=== PATIENT | female | born 1990 | race Caucasian/White ===

== ENCOUNTER 2017-12-12 12:22 | Emergency (ER) | payer OTHER ==
[2017-12-12] MEDS ORDERED: SODIUM CHLORIDE 0.9% 1,000 ML IV ONE (12:28)
[2017-12-12] MEDS ORDERED: METOCLOPRAMIDE 5 MG/ML 2 ML VIAL IVP STA (12:38)
--- NOTE | 2017-12-12 12:38 | ED ---
General Adult HPI - General Chief complaint: Nausea/Vomiting/Diarrhea Stated complaint: vomiting Time Seen by Provider: 12/12/17 12:25 Source: patient, RN notes reviewed Mode of arrival: EMS Limitations: no limitations - History of Present Illness Initial comments: This is a 27 her old female who presents emergency department 7 weeks . Patient comes in stating she has been vomiting nonstop for the last 3 days. Patient states she has not of OVERCASTER. Patient states she also is having occasional chest pain that last 2-3 seconds and then seemed to subside. Patient states along with the pain she feels short of breath during that period of time and then that resolved as well currently she is having no chest pain and no shortness of breath. Patient denies any abdominal pain. Patient denies any vaginal discharge or bleeding. Patient denies any recent fever chills or cough. - Related Data Previous Rx's Medication Instructions Recorded Metoclopramide [Reglan] 10 mg PO ACHS #10 tab 12/12/17 Allergies Allergy/AdvReac Type Severity Reaction Status Date / Time No Known Allergies Allergy Verified 12/12/17 12:43 Review of Systems ROS Statement: Those systems with pertinent positive or pertinent negative responses have been documented in the HPI. ROS Other: All systems not noted in ROS Statement are negative. Past Medical History Past Medical History: No Reported History Additional Past Medical History / Comment(s): migraine headaches History of Any Multi-Drug Resistant Organisms: None Reported Past Surgical History: Section Additional Past Surgical History / Comment(s): C-sections x 2, most recent in August 2015, Dr. Lazo Past Anesthesia/Blood Transfusion Reactions: No Reported Reaction Past Psychological History: Anxiety, Depression Smoking Status: Former smoker Past Alcohol Use History: None Reported Past Drug Use History: None Reported - Past Family History Mother Family Medical History: No Reported History Father History Unknown: Yes Family Medical History: No Reported History Additional Family Medical History / Comment(s): Pt has never known her father other than he lives in [place]. General Exam - General Exam Comments Initial Comments: GENERAL: Patient is well-developed and well-nourished. Patient is nontoxic and well- hydrated and is in no acute distress. ENT: Neck is soft and supple. No significant lymphadenopathy is noted. Oropharynx is clear. Moist mucous membranes. EYES: The sclera were anicteric and conjunctiva were pink and moist. Extraocular movements were intact and pupils were equal round and reactive to light. Eyelids were unremarkable. PULMONARY: Unlabored respirations. Good breath sounds bilaterally. No audible rales rhonchi or wheezing was noted. CARDIOVASCULAR: There is a regular rate and rhythm without any murmurs gallops or rubs. ABDOMEN: Soft and nontender with normal bowel sounds. SKIN: Skin is clear with no lesions or rashes and otherwise unremarkable. NEUROLOGIC: Patient is alert and oriented x3. Cranial nerves II through XII are grossly intact. Motor and sensory are also intact. Normal speech, volume and content. Symmetrical smile. MUSCULOSKELETAL: Normal extremities with adequate strength and full range of motion. No lower extremity swelling or edema. No calf tenderness. LYMPHATICS: No significant lymphadenopathy is noted PSYCHIATRIC: Normal psychiatric evaluation. Limitations: no limitations Course Vital Signs 12/12/17 12:25 Temperature 98.0 F Pulse Rate 75 Respiratory 18 Rate Blood Pressure 110/80 O2 Sat by Pulse 100 Oximetry Medical Decision Making - Medical Decision Making I went back into the room the patient was sleeping and had to be awoken by myself. When I awoke her she stated she was having no symptoms at this time. She was no longer nauseated. - Lab Data Result diagrams: 12/12/17 13:32 12/12/17 13:32 Lab Results 12/12/17 12/12/17 12/12/17 Range/Units 13:32 13:32 13:38 WBC 8.1 (3.8-10.6) k/uL RBC 3.84 (3.80-5.40) m/uL Hgb 11.9 (11.4-16.0) gm/dL Hct 35.2 (34.0-46.0) % MCV 91.5 (80.0-100.0) fL MCH 30.9 (25.0-35.0) pg MCHC 33.7 (31.0-37.0) g/dL RDW 13.2 (11.5-15.5) % Plt Count 284 (150-450) k/uL Neutrophils % 70 % Lymphocytes % 20 % Monocytes % 7 % Eosinophils % 1 % Basophils % 0 % Neutrophils # 5.7 (1.3-7.7) k/uL Lymphocytes # 1.6 (1.0-4.8) k/uL Monocytes # 0.6 (0-1.0) k/uL Eosinophils # 0.1 (0-0.7) k/uL Basophils # 0.0 (0-0.2) k/uL D-Dimer 0.48 (<0.60) mg/L FEU Sodium 138 (137-145) mmol/L Potassium 3.6 (3.5-5.1) mmol/L Chloride 108 H (98-107) mmol/L Carbon Dioxide 19 L (22-30) mmol/L Anion Gap 11 mmol/L BUN 10 (7-17) mg/dL Creatinine 0.49 L (0.52-1.04) mg/dL Est GFR (CKD-EPI)AfAm >90 (>60 ml/min/1.73 sqM) Est GFR (CKD-EPI)NonAf >90 (>60 ml/min/1.73 sqM) Glucose 75 (74-99) mg/dL Calcium 9.1 (8.4-10.2) mg/dL Total Bilirubin 0.6 (0.2-1.3) mg/dL AST 18 (14-36) U/L ALT 26 (9-52) U/L Alkaline Phosphatase 82 (38-126) U/L Total Protein 6.5 (6.3-8.2) g/dL Albumin 3.7 (3.5-5.0) g/dL Disposition Clinical Impression: Hyperemesis gravidarum Disposition: HOME SELF-CARE Instructions: Hyperemesis Gravidarum (ED) Prescriptions: Metoclopramide [Reglan] 10 mg PO ACHS #10 tab Referrals: None,Stated [Primary Care Provider] - 1-2 days Time of Disposition: 14:47
[2017-12-12 13:55] LABS: Basophils % (A) 0 %; Eosinophils # (A) 0.1 k/uL (0-0.7); Eosinophils % (A) 1 %; HCT 35.2 % (34.0-46.0); HGB 11.9 gm/dL (11.4-16.0); Lymphocytes # (A) 1.6 k/uL (1.0-4.8); Lymphocytes % (A) 20 %; MCH 30.9 pg (25.0-35.0); MCHC 33.7 g/dL (31.0-37.0); MCV 91.5 fL (80.0-100.0); Mean Platelet Volume 8.1; Monocytes # (A) 0.6 k/uL (0-1.0); Monocytes % (A) 7 %; Neutrophils # (A) 5.7 k/uL (1.3-7.7); Neutrophils % (A) 70 %; Platelet Count 284 k/uL (150-450); RBC 3.84 m/uL (3.80-5.40); RDW 13.2 % (11.5-15.5); WBC 8.1 k/uL (3.8-10.6)
[2017-12-12 14:10] LABS: ALT 26 U/L (9-52); AST 18 U/L (14-36); Albumin 3.7 g/dL (3.5-5.0); Alkaline Phosphatase 82 U/L (38-126); Anion Gap 11 mmol/L; Blood Urea Nitrogen 10 mg/dL (7-17); Calcium 9.1 mg/dL (8.4-10.2); Carbon Dioxide 19 mmol/L (22-30); Chloride 108 mmol/L (98-107); Glucose 75 mg/dL (74-99); Potassium 3.6 mmol/L (3.5-5.1); Sodium 138 mmol/L (137-145); Total Bilirubin 0.6 mg/dL (0.2-1.3); Total Protein 6.5 g/dL (6.3-8.2)
[2017-12-12 14:57] VITALS: BP 113/74; PULSE 76; RESP 12; TEMP 97.9
[2017-12-12] MEDS ORDERED: ACETAMINOPHEN TAB 325 MG TAB PO STA (14:57)
== END 2017-12-12 15:10 | disposition home or self-care (01) ==
LOC: EC 12:22
DX: O21.0 Mild hyperemesis gravidarum (principal); Z87.891 Personal history of nicotine dependence; Z98.890 Other specified postprocedural states; Z3A.01 Less than 8 weeks gestation of pregnancy
CPT/HCPCS: 36415; 85379; 80053; 85025; 99284; 96374; 96361; J2765

== ENCOUNTER 2018-01-14 11:47 | Emergency (ER) | payer OTHER ==
[2018-01-14 13:17] VITALS: RESP 18; TEMP 98.1
[2018-01-14] MEDS ORDERED: METOCLOPRAMIDE 5 MG/ML 2 ML VIAL IVP STA (13:51)
[2018-01-14] MEDS ORDERED: diphenhydrAMINE 50 MG/ML 1 ML VIAL IVP STA (13:51)
--- NOTE | 2018-01-14 13:54 | ED ---
Nausea/Vomiting/Diarrhea HPI - General Chief complaint: Nausea/Vomiting/Diarrhea Stated complaint: dizziness, nausea Time Seen by Provider: 01/14/18 13:18 Source: patient Mode of arrival: ambulatory Limitations: no limitations - History of Present Illness Initial comments: Patient presents with nausea and vomiting in . Patient states she is 13 weeks . Patient is . Is a recurrent problem for the patient, has been seen in the ER twice for the same problem this . Patient has yet to see OB physician. Patient had abdominal ultrasound confirming intrauterine during last ER visit. Patient states she was told she has a vaginal yeast infection, however never filled prescription for medication , because she could not get a ride to the pharmacy. Patient states she continues to have small amount of yellow odorous discharge, that is the exact same is she had she when she was diagnosed with yeast infection. Denies any vaginal bleeding. Patient denies urinary symptoms. Denies fevers, chills. Patient states she vomits regularly throughout the day. States she has been able to keep small amounts of water and yogurt down. MD complaint: nausea, vomiting - Related Data Previous Rx's Medication Instructions Recorded Miconazole 2% Vaginal Cream 1 applicator VAGINAL HS 7 Days #1 01/14/18 [Monistat 7] cream.appl Ondansetron Odt [Zofran Odt] 4 mg PO Q8HR PRN #10 tab 01/14/18 Allergies Allergy/AdvReac Type Severity Reaction Status Date / Time No Known Allergies Allergy Verified 01/14/18 13:33 Review of Systems ROS Statement: Those systems with pertinent positive or pertinent negative responses have been documented in the HPI. ROS Other: All systems not noted in ROS Statement are negative. Constitutional: Denies: fever, chills, weakness Eyes: Denies: vision change ENT: Denies: ear pain, throat pain, congestion Respiratory: Denies: cough Cardiovascular: Denies: chest pain Endocrine: Denies: fatigue Gastrointestinal: Reports: nausea, vomiting. Denies: abdominal pain, diarrhea, constipation, hematemesis, melena, hematochezia Genitourinary: Reports: discharge. Denies: urgency, dysuria, frequency, hematuria Musculoskeletal: Denies: back pain Skin: Denies: rash, lesions, change in color Neurological: Denies: headache Past Medical History Past Medical History: No Reported History Additional Past Medical History / Comment(s): migraine headaches History of Any Multi-Drug Resistant Organisms: None Reported Past Surgical History: Section Additional Past Surgical History / Comment(s): C-sections x 2, most recent in August 2015, Dr. Lazo Past Anesthesia/Blood Transfusion Reactions: No Reported Reaction Past Psychological History: Anxiety, Depression Smoking Status: Former smoker Past Alcohol Use History: None Reported Past Drug Use History: Marijuana - Past Family History Mother Family Medical History: No Reported History Father History Unknown: Yes Family Medical History: No Reported History Additional Family Medical History / Comment(s): Pt has never known her father other than he lives in [place]. General Exam - General Exam Comments Initial Comments: Sitting up on side of bed. No acute distress. Conversing normally. Calm, pleasant. well Appearing. Limitations: no limitations General appearance: alert, in no apparent distress Head exam: Present: atraumatic, normocephalic Eye exam: Present: normal appearance, PERRL, EOMI ENT exam: Present: normal exam, normal oropharynx Neck exam: Present: normal inspection, full ROM. Absent: meningismus Respiratory exam: Present: normal lung sounds bilaterally. Absent: respiratory distress, wheezes, rales Cardiovascular Exam: Present: regular rate, normal rhythm GI/Abdominal exam: Present: soft, other (Abdomen soft nontender). Absent: distended, tenderness, guarding, rebound, rigid Extremities exam: Present: other (No gross deformities of the extremities.) Neurological exam: Present: alert, oriented X3 Psychiatric exam: Present: normal affect, normal mood Skin exam: Present: warm, dry, intact, normal color. Absent: rash, cyanosis, diaphoretic, erythema Course Vital Signs 01/14/18 01/14/18 13:13 14:30 Temperature 98.1 F Pulse Rate 85 69 Respiratory 18 18 Rate Blood Pressure 108/70 106/66 O2 Sat by Pulse 99 98 Oximetry Medical Decision Making - Medical Decision Making Discussed pelvic examination given patient's discharge, patient states she had a pelvic exam during her last ER visit and does not want to repeat one today. Patient states discharge has not changed in any way. Discuss risk benefit of nausea medication options in , patient elected to receive Reglan. Lactated Ringer's fluid boluses given. Patient given miconazole vaginal cream in ER, instructed to use daily for 7 days. No significant lab abnormalities, UA negative for infection Patient updated with all results, states symptoms resolved status post medications. Patient states oral Reglan did not work for at home, patient requests Zofran. Risk benefit of Zofran distress, patient states she understands, patient still requests Zofran. Prescription vaginal it's a fungal cream prescribed as well. Patient states she has been approved today for visit with OB, states she can schedule one for one to 2 days for reevaluation. Agrees to return to ER for new or worsening symptoms. - Lab Data Result diagrams: 01/14/18 14:08 01/14/18 14:08 Lab Results 01/14/18 01/14/18 01/14/18 Range/Units 14:08 14:08 14:30 WBC 8.8 (3.8-10.6) k/uL RBC 4.05 (3.80-5.40) m/uL Hgb 12.3 (11.4-16.0) gm/dL Hct 35.9 (34.0-46.0) % MCV 88.5 (80.0-100.0) fL MCH 30.5 (25.0-35.0) pg MCHC 34.4 (31.0-37.0) g/dL RDW 12.6 (11.5-15.5) % Plt Count 312 (150-450) k/uL Neutrophils % 71 % Lymphocytes % 20 % Monocytes % 5 % Eosinophils % 3 % Basophils % 0 % Neutrophils # 6.3 (1.3-7.7) k/uL Lymphocytes # 1.8 (1.0-4.8) k/uL Monocytes # 0.4 (0-1.0) k/uL Eosinophils # 0.2 (0-0.7) k/uL Basophils # 0.0 (0-0.2) k/uL Sodium 138 (137-145) mmol/L Potassium 3.7 (3.5-5.1) mmol/L Chloride 104 (98-107) mmol/L Carbon Dioxide 21 L (22-30) mmol/L Anion Gap 13 mmol/L BUN 6 L (7-17) mg/dL Creatinine 0.50 L (0.52-1.04) mg/dL Est GFR (CKD-EPI)AfAm >90 (>60 ml/min/1.73 sqM) Est GFR (CKD-EPI)NonAf >90 (>60 ml/min/1.73 sqM) Glucose 79 (74-99) mg/dL Calcium 9.6 (8.4-10.2) mg/dL Total Bilirubin 0.3 (0.2-1.3) mg/dL AST 14 (14-36) U/L ALT 16 (9-52) U/L Alkaline Phosphatase 69 (38-126) U/L Total Protein 7.0 (6.3-8.2) g/dL Albumin 3.8 (3.5-5.0) g/dL Lipase 73 (23-300) U/L Urine Color Colorless Urine Appearance Clear (Clear) Urine pH 7.0 (5.0-8.0) Ur Specific [place] 1.006 (1.001-1.035) Urine Protein Negative (Negative) Urine Glucose (UA) Negative (Negative) Urine Ketones Negative (Negative) Urine Blood Negative (Negative) Urine Nitrite Negative (Negative) Urine Bilirubin Negative (Negative) Urine Urobilinogen <2.0 (<2.0) mg/dL Ur Leukocyte Esterase Negative (Negative) Disposition Clinical Impression: Vomiting affecting Disposition: HOME SELF-CARE Condition: Good Additional Instructions: Follow-up with your OB Dr. Lazo in 1-2 days. Return to ER for new or worsening symptoms. Prescriptions: Miconazole 2% Vaginal Cream [Monistat 7] 1 applicator VAGINAL HS 7 Days #1 cream.appl Ondansetron Odt [Zofran Odt] 4 mg PO Q8HR PRN #10 tab PRN Reason: Nausea Is patient prescribed a controlled substance at discharge?: No Referrals: None,Stated [Primary Care Provider] - 1-2 days
[2018-01-14] MEDS ORDERED: LACTATED RINGERS 2,000 ML IV SCH (14:00)
[2018-01-14 14:24] LABS: Basophils % (A) 0 %; Eosinophils # (A) 0.2 k/uL (0-0.7); Eosinophils % (A) 3 %; HCT 35.9 % (34.0-46.0); HGB 12.3 gm/dL (11.4-16.0); Lymphocytes # (A) 1.8 k/uL (1.0-4.8); Lymphocytes % (A) 20 %; MCH 30.5 pg (25.0-35.0); MCHC 34.4 g/dL (31.0-37.0); MCV 88.5 fL (80.0-100.0); Mean Platelet Volume 7.2; Monocytes # (A) 0.4 k/uL (0-1.0); Monocytes % (A) 5 %; Neutrophils # (A) 6.3 k/uL (1.3-7.7); Neutrophils % (A) 71 %; Platelet Count 312 k/uL (150-450); RBC 4.05 m/uL (3.80-5.40); RDW 12.6 % (11.5-15.5); WBC 8.8 k/uL (3.8-10.6)
[2018-01-14 14:30] VITALS: BP 106/66; PULSE 69
[2018-01-14 14:33] LABS: ALT 16 U/L (9-52); AST 14 U/L (14-36); Albumin 3.8 g/dL (3.5-5.0); Alkaline Phosphatase 69 U/L (38-126); Anion Gap 13 mmol/L; Blood Urea Nitrogen 6 mg/dL (7-17); Calcium 9.6 mg/dL (8.4-10.2); Carbon Dioxide 21 mmol/L (22-30); Chloride 104 mmol/L (98-107); Glucose 79 mg/dL (74-99); Lipase 73 U/L (23-300); Potassium 3.7 mmol/L (3.5-5.1); Sodium 138 mmol/L (137-145); Total Bilirubin 0.3 mg/dL (0.2-1.3)
[2018-01-14 14:44] LABS: Appearance,Urine Clear (Clear); Bilirubin,Urine Negative (Negative); Blood,Urine Negative (Negative); Color,Urine Colorless; Glucose,Urine (UA) Negative (Negative); Ketones,Urine Negative (Negative); Leukocyte Esterase,Urine Negative (Negative); Nitrite,Urine Negative (Negative); Protein,Urine Negative (Negative); Specific Gravity,Urine 1.006 (1.001-1.035); Urobilinogen,Urine <2.0 mg/dL (<2.0)
[2018-01-14] MEDS ORDERED: MICONAZOLE 2% VAGINAL CREAM 45 GM TUBE/KIT VAGINAL ONE (15:00)
== END 2018-01-14 15:21 | disposition home or self-care (01) ==
LOC: EC 11:47
DX: O21.9 Vomiting of pregnancy, unspecified (principal); O99.89 Other specified diseases and conditions complicating pregnancy, childbirth and the puerperium; R42 Dizziness and giddiness; Z3A.13 13 weeks gestation of pregnancy; Z87.891 Personal history of nicotine dependence
CPT/HCPCS: 36415; 80053; 83690; 85025; 81003; 87086; 99284; 96374; 96375; 96361; J1200; J2765

== ENCOUNTER 2018-02-28 13:41 | Emergency (ER) | payer OTHER ==
[2018-02-28 13:51] VITALS: BP 102/74; PULSE 92; RESP 18; TEMP 98.2
--- NOTE | 2018-02-28 15:10 | ED ---
Abdominal Pain HPI - General Chief Complaint: Abdominal Pain Stated Complaint: 19 1/2 wks preg/side abdominal pain Time Seen by Provider: 02/28/18 14:54 Source: patient, RN notes reviewed Mode of arrival: ambulatory Limitations: no limitations - History of Present Illness Initial Comments: This a 28-year-old female presents emergency Department chief complaint of left lower quadrant abdominal pain. Patient states that she feels that it's bulging or lumps. Patient states that she is currently 19 weeks and her OB/ PELLETIZER TENDER is Dr. Hernandez. Patient is A0. Patient states this has been present for last 2 weeks talk to her BLEACHING SUPERVISOR about this. Recommended to go to the ER if symptoms worsen. They did not feel this is anything to do with her . She denies any vaginal bleeding or vaginal discharge. Patient states she does have a history of anemia. Patient denies any fever, chills, chest pain or shortness breath. - Related Data Home Medications Medication Instructions Recorded Confirmed diphenhydrAMINE [Benadryl] 25 mg PO DAILY PRN 02/28/18 02/28/18 Previous Rx's Medication Instructions Recorded Cephalexin [Keflex] 500 mg PO Q8HR #15 cap 02/28/18 Allergies Allergy/AdvReac Type Severity Reaction Status Date / Time No Known Allergies Allergy Verified 02/28/18 14:44 Review of Systems ROS Statement: Those systems with pertinent positive or pertinent negative responses have been documented in the HPI. ROS Other: All systems not noted in ROS Statement are negative. Past Medical History Past Medical History: No Reported History Additional Past Medical History / Comment(s): migraine headaches History of Any Multi-Drug Resistant Organisms: None Reported Past Surgical History: Section Additional Past Surgical History / Comment(s): C-sections x 2, most recent in August 2015, Dr. Lazo Past Anesthesia/Blood Transfusion Reactions: No Reported Reaction Past Psychological History: Anxiety, Depression Smoking Status: Former smoker Past Alcohol Use History: None Reported Past Drug Use History: Marijuana - Past Family History Mother Family Medical History: No Reported History Father History Unknown: Yes Family Medical History: No Reported History Additional Family Medical History / Comment(s): Pt has never known her father other than he lives in [place]. General Exam Limitations: no limitations General appearance: alert, in no apparent distress Head exam: Present: atraumatic, normocephalic, normal inspection Respiratory exam: Present: normal lung sounds bilaterally. Absent: respiratory distress, wheezes, rales, rhonchi, stridor Cardiovascular Exam: Present: regular rate, normal rhythm, normal heart sounds. Absent: systolic murmur, diastolic murmur, rubs, gallop, clicks GI/Abdominal exam: Present: soft, tenderness (Tenderness to left upper quadrant) , normal bowel sounds, other (Abdomen size appropriate for gestational age). Absent: distended, guarding, rebound, rigid Back exam: Absent: CVA tenderness (R), CVA tenderness (L) Skin exam: Present: warm, dry, intact, normal color. Absent: rash Course Vital Signs 02/28/18 13:47 Temperature 98.2 F Pulse Rate 92 Respiratory 18 Rate Blood Pressure 102/74 O2 Sat by Pulse 98 Oximetry Medical Decision Making - Medical Decision Making 28-year-old female presents to emergency from for abdominal pain. Patient ultrasound which did not show any acute abnormality of her left upper quadrant. She does have some underlying GERD symptoms. She'll take [id number] Tums. Patient may have abdominal wall strain or slight hernia. Patient had heart tones which is unremarkable. Patient does have urinary tract infection. - Lab Data Result diagrams: 02/28/18 15:28 02/28/18 15:28 Lab Results 02/28/18 02/28/18 02/28/18 Range/Units 15:14 15:28 15:28 WBC 9.7 (3.8-10.6) k/uL RBC 3.60 L (3.80-5.40) m/uL Hgb 11.2 L (11.4-16.0) gm/dL Hct 32.9 L (34.0-46.0) % MCV 91.3 (80.0-100.0) fL MCH 31.0 (25.0-35.0) pg MCHC 34.0 (31.0-37.0) g/dL RDW 13.4 (11.5-15.5) % Plt Count 295 (150-450) k/uL Neutrophils % 71 % Lymphocytes % 20 % Monocytes % 5 % Eosinophils % 3 % Basophils % 0 % Neutrophils # 6.9 (1.3-7.7) k/uL Lymphocytes # 2.0 (1.0-4.8) k/uL Monocytes # 0.5 (0-1.0) k/uL Eosinophils # 0.3 (0-0.7) k/uL Basophils # 0.0 (0-0.2) k/uL PT (9.0-12.0) sec INR (<1.2) APTT (22.0-30.0) sec Sodium 136 L (137-145) mmol/L Potassium 3.8 (3.5-5.1) mmol/L Chloride 103 (98-107) mmol/L Carbon Dioxide 22 (22-30) mmol/L Anion Gap 11 mmol/L BUN 6 L (7-17) mg/dL Creatinine 0.52 (0.52-1.04) mg/dL Est GFR (CKD-EPI)AfAm >90 (>60 ml/min/1.73 sqM) Est GFR (CKD-EPI)NonAf >90 (>60 ml/min/1.73 sqM) Glucose 93 (74-99) mg/dL Calcium 9.1 (8.4-10.2) mg/dL Total Bilirubin 0.3 (0.2-1.3) mg/dL AST 13 L (14-36) U/L ALT 20 (9-52) U/L Alkaline Phosphatase 70 (38-126) U/L Total Protein 6.2 L (6.3-8.2) g/dL Albumin 3.6 (3.5-5.0) g/dL Urine Color Light Yellow Urine Appearance Cloudy H (Clear) Urine pH 6.5 (5.0-8.0) Ur Specific [place] 1.005 (1.001-1.035) Urine Protein Negative (Negative) Urine Glucose (UA) Negative (Negative) Urine Ketones Negative (Negative) Urine Blood Negative (Negative) Urine Nitrite Negative (Negative) Urine Bilirubin Negative (Negative) Urine Urobilinogen <2.0 (<2.0) mg/dL Ur Leukocyte Esterase Large H (Negative) Urine RBC 4 (0-5) /hpf Urine WBC 16 H (0-5) /hpf Ur Squamous Epith Cells 7 H (0-4) /hpf Urine Mucus Rare H (None) /hpf 02/28/18 Range/Units 15:28 WBC (3.8-10.6) k/uL RBC (3.80-5.40) m/uL Hgb (11.4-16.0) gm/dL Hct (34.0-46.0) % MCV (80.0-100.0) fL MCH (25.0-35.0) pg MCHC (31.0-37.0) g/dL RDW (11.5-15.5) % Plt Count (150-450) k/uL Neutrophils % % Lymphocytes % % Monocytes % % Eosinophils % % Basophils % % Neutrophils # (1.3-7.7) k/uL Lymphocytes # (1.0-4.8) k/uL Monocytes # (0-1.0) k/uL Eosinophils # (0-0.7) k/uL Basophils # (0-0.2) k/uL PT 10.3 (9.0-12.0) sec INR 1.1 (<1.2) APTT 22.7 (22.0-30.0) sec Sodium (137-145) mmol/L Potassium (3.5-5.1) mmol/L Chloride (98-107) mmol/L Carbon Dioxide (22-30) mmol/L Anion Gap mmol/L BUN (7-17) mg/dL Creatinine (0.52-1.04) mg/dL Est GFR (CKD-EPI)AfAm (>60 ml/min/1.73 sqM) Est GFR (CKD-EPI)NonAf (>60 ml/min/1.73 sqM) Glucose (74-99) mg/dL Calcium (8.4-10.2) mg/dL Total Bilirubin (0.2-1.3) mg/dL AST (14-36) U/L ALT (9-52) U/L Alkaline Phosphatase (38-126) U/L Total Protein (6.3-8.2) g/dL Albumin (3.5-5.0) g/dL Urine Color Urine Appearance (Clear) Urine pH (5.0-8.0) Ur Specific [place] (1.001-1.035) Urine Protein (Negative) Urine Glucose (UA) (Negative) Urine Ketones (Negative) Urine Blood (Negative) Urine Nitrite (Negative) Urine Bilirubin (Negative) Urine Urobilinogen (<2.0) mg/dL Ur Leukocyte Esterase (Negative) Urine RBC (0-5) /hpf Urine WBC (0-5) /hpf Ur Squamous Epith Cells (0-4) /hpf Urine Mucus (None) /hpf Disposition Clinical Impression: , Abdominal wall pain, GERD (gastroesophageal reflux disease), UTI ( urinary tract infection) Disposition: HOME SELF-CARE Condition: Stable Instructions: Urinary Tract Infection in (ED) Additional Instructions: Please return to the Emergency Department if symptoms worsen or any other concerns. Prescriptions: Cephalexin [Keflex] 500 mg PO Q8HR #15 cap Is patient prescribed a controlled substance at d/c from ED?: No Referrals: None,Stated [Primary Care Provider] - 1-2 days
[2018-02-28 15:35] LABS: Appearance,Urine Cloudy (Clear); Bilirubin,Urine Negative (Negative); Blood,Urine Negative (Negative); Color,Urine Light Yellow; Glucose,Urine (UA) Negative (Negative); Ketones,Urine Negative (Negative); Leukocyte Esterase,Urine Large (Negative); Mucus,Urine Rare /hpf; Nitrite,Urine Negative (Negative); PH, Urine 6.5 (5.0-8.0); Protein,Urine Negative (Negative); RBC,Urine 4 /hpf (0-5); Specific Gravity,Urine 1.005 (1.001-1.035); Squamous Epithelial Cell,Urine 7 /hpf (0-4); Urobilinogen,Urine <2.0 mg/dL (<2.0); WBC,Urine 16 /hpf (0-5)
[2018-02-28 15:36] LABS: Basophils % (A) 0 %; Eosinophils # (A) 0.3 k/uL (0-0.7); Eosinophils % (A) 3 %; HCT 32.9 % (34.0-46.0); HGB 11.2 gm/dL (11.4-16.0); Lymphocytes % (A) 20 %; MCV 91.3 fL (80.0-100.0); Monocytes # (A) 0.5 k/uL (0-1.0); Monocytes % (A) 5 %; Neutrophils # (A) 6.9 k/uL (1.3-7.7); Neutrophils % (A) 71 %; Platelet Count 295 k/uL (150-450); RDW 13.4 % (11.5-15.5); WBC 9.7 k/uL (3.8-10.6)
[2018-02-28 15:50] LABS: ALT 20 U/L (9-52); AST 13 U/L (14-36); Albumin 3.6 g/dL (3.5-5.0); Alkaline Phosphatase 70 U/L (38-126); Anion Gap 11 mmol/L; Blood Urea Nitrogen 6 mg/dL (7-17); Calcium 9.1 mg/dL (8.4-10.2); Carbon Dioxide 22 mmol/L (22-30); Chloride 103 mmol/L (98-107); Glucose 93 mg/dL (74-99); Potassium 3.8 mmol/L (3.5-5.1); Sodium 136 mmol/L (137-145); Total Bilirubin 0.3 mg/dL (0.2-1.3); Total Protein 6.2 g/dL (6.3-8.2)
[2018-02-28 15:52] LABS: INR 1.1 (<1.2); Partial Thromboplastin Time 22.7 sec (22.0-30.0); Prothrombin Time 10.3 sec (9.0-12.0)
--- NOTE | 2018-02-28 16:05 | US ---
EXAMINATION TYPE: US abdomen limited DATE OF EXAM: 02/28/2018 COMPARISON: NONE CLINICAL HISTORY: LUQ Pain. EXAM MEASUREMENTS: Spleen: wnl Left Kidney: wnl 1. Spleen: 10.7 cm 2. Left Kidney: 9.9 x 4.5 x 4.1 cm No abnormality visualized. IMPRESSION: No left-sided hydronephrosis or nephrolithiasis. No splenomegaly. No sonographic abnormal ity.
== END 2018-02-28 16:44 | disposition home or self-care (01) ==
LOC: EC 13:41
DX: O99.612 Diseases of the digestive system complicating pregnancy, second trimester (principal); K21.9 Gastro-esophageal reflux disease without esophagitis; O23.42 Unspecified infection of urinary tract in pregnancy, second trimester; Z87.891 Personal history of nicotine dependence; Z98.890 Other specified postprocedural states; Z3A.19 19 weeks gestation of pregnancy
CPT/HCPCS: 36415; 76705; 80053; 81001; 85025; 85610; 85730; 99284

== ENCOUNTER → 2018-04-08 | Outpatient (CLI) | payer OTHER ==
[2018-04-08 11:29] LABS: HCT 30.6 % (34.0-46.0); HGB 10.1 gm/dL (11.4-16.0); MCH 31.2 pg (25.0-35.0); MCHC 32.9 g/dL (31.0-37.0); Mean Platelet Volume 6.6; Platelet Count 310 k/uL (150-450); RBC 3.22 m/uL (3.80-5.40); RDW 13.1 % (11.5-15.5); WBC 9.9 k/uL (3.8-10.6)
[2018-04-08 19:42] LABS: HIV AB P24 Non-Reactive (Non-Reactive); HIV P24 AG Non-Reactive (Non-Reactive)
[2018-04-09 06:49] LABS: Toxoplasma Antibody (IgG) <3.0 IU/mL (<7.2); Toxoplasma Antibody (IgM) <3.0 AU/mL (<8.0)
== END | disposition home or self-care (01) ==
LOC: LABWHC1 10:11
PROVIDERS: ATTEND Obstetrics & Gynecology
DX: Z34.82 Encounter for supervision of other normal pregnancy, second trimester (principal); Z3A.00 Weeks of gestation of pregnancy not specified
CPT/HCPCS: 36415; 82565; 82950; 85027; 86762; 86777; 86778; 86780; 86850; 86900; 86901; 87340; 87390

== ENCOUNTER 2018-04-19 12:24 | Outpatient (CLI) | payer OTHER ==
[2018-04-19 13:23] LABS: Appearance,Urine Cloudy (Clear); Bacteria,Urine Rare /hpf; Bilirubin,Urine Negative (Negative); Blood,Urine Negative (Negative); Color,Urine Yellow; Glucose,Urine (UA) Negative (Negative); Ketones,Urine Negative (Negative); Leukocyte Esterase,Urine Large (Negative); Mucus,Urine Rare /hpf; Nitrite,Urine Negative (Negative); PH, Urine 6.5 (5.0-8.0); Protein,Urine Negative (Negative); RBC,Urine <1 /hpf (0-5); Specific Gravity,Urine 1.016 (1.001-1.035); Squamous Epithelial Cell,Urine 4 /hpf (0-4); Urobilinogen,Urine <2.0 mg/dL (<2.0); WBC,Urine 7 /hpf (0-5)
[2018-04-19 14:55] VITALS: BP 119/69; PULSE 110; RESP 16; TEMP 96.4
--- NOTE | 2018-04-24 10:58 | P.MSEPDOC ---
Presenting Problems - Arrival Data Date of Arrival on Unit: 04/19/18 Time of Arrival on Unit: 12:24 Mode of Transport: Ambulatory - Complaint OB-Reason for Admission/Chief Complaint: Rule Out SROM Medical History - Information : 4 Para: 3 Term: 3 : 0 Abortions: Spontaneous or Elective: 0 Number of Living Children: 3 - Gestational Age Gestational Age by HALEY (wks/days): 26 Weeks and 3 Days - History Complications: Prior Review of Systems - Review of Systems Constitutional: No problems Breast: No problems ENT: No problems Cardiovascular: No problems Respiratory: No problems Gastrointestinal: No problems Genitourinary: No problems Musculoskeletal: No problems Neurological: No problems Skin: No problems Vital Signs - Temperature Temperature: 96.4 F Temperature Source: Tympanic - Pulse Bilateral Brachial Pulse Rate: 110 Pulse Assessment Method: Automatic Cuff - Respirations Respiratory Rate: 16 Oxygen Delivery Method: Room Air - Blood Pressure Right Arm Blood Pressure: 119/69 Blood Pressure Mean: 85 Blood Pressure Source: Automatic Cuff Medical Screen Scoring (Pre) - Cervical Exam Dilation: 0 cm = 0 Membranes: Intact - Uterine Contractions Frequency: N/A Duration: N/A Intensity: N/A - Maternal Vital Signs Maternal Temperature: N/A Maternal Blood Pressure: N/A Signs of Preeclampsia: N/A Maternal Respirations: N/A - Pain Assessment Pain Location and Character: Abdomen Pain Scale Used: Numeric (1 - 10) Pain Intensity: 8 Pain Management Goal: 4 Pain Description: *Acute Pain Radiation Location: na Pain Frequency: Intermittent Pain Duration: 3 Pain Duration Units: Minutes Pain Behavior: Vocalization Pain Aggravating Factors: None Non-Pharmacological Interventions: Position/Reposition - Assessment Baseline FHR: 135 Heart Rate - NICHD Category: Category I (Normal) = 0 NST: Reactive Position: N/A Station: N/A - Total Score Total Score (Pre): 0 - Level of Risk Level of Risk: N/A Physician Notification (Pre) - Physician Notified Physician Notified Date: 04/19/18 Physician Notified Time: 13:30 Physician/Practitioner Notifed:: Dr. Chacon Spoke With: Dr. Chacon New Order Received: Yes - Notification Comment Comment: d/c home Disposition - Disposition OB Disposition: Discharge to home Discharge Date: 04/19/18 Discharge Time: 13:40 I agree with the RN Medical Screening Exam: Yes Risk & Benefit of care provided described in d/c instruction: Yes Diagnosis: FALSE LABOR BEFORE 37 COMPLETED WEEKS OF GEST, THIRD TRI
== END 2018-04-19 13:40 | disposition home or self-care (01) ==
LOC: FBPOP 12:24
PROVIDERS: ATTEND Obstetrics & Gynecology
DX: O47.03 False labor before 37 completed weeks of gestation, third trimester (principal); Z3A.26 26 weeks gestation of pregnancy
CPT/HCPCS: 81001; 87086; G0463; 99213

== ENCOUNTER 2018-07-16 05:55 | Inpatient (IN) | payer OTHER ==
[2018-07-16] MEDS ORDERED: CITRIC ACID-SODIUM CITRATE 15 ML CUP PO ONE (06:06)
[2018-07-16] MEDS ORDERED: LACTATED RINGERS 1,000 ML IV ONE (06:06)
[2018-07-16] MEDS ORDERED: ceFAZolin IN SWFI 2 GM/20 ML SYRINGE IVP ONE (06:06)
[2018-07-16 06:16] VITALS: BMI 28.2
[2018-07-16 07:35] LABS: Basophils % (A) 0 %; Eosinophils # (A) 0.2 k/uL (0-0.7); Eosinophils % (A) 1 %; HCT 28.9 % (34.0-46.0); HGB 9.7 gm/dL (11.4-16.0); Lymphocytes # (A) 2.2 k/uL (1.0-4.8); Lymphocytes % (A) 20 %; MCH 28.2 pg (25.0-35.0); MCHC 33.5 g/dL (31.0-37.0); MCV 84.1 fL (80.0-100.0); Mean Platelet Volume 7.5; Monocytes # (A) 0.6 k/uL (0-1.0); Monocytes % (A) 5 %; Neutrophils # (A) 7.8 k/uL (1.3-7.7); Neutrophils % (A) 71 %; Platelet Count 302 k/uL (150-450); RBC 3.44 m/uL (3.80-5.40); RDW 14.4 % (11.5-15.5); WBC 11.1 k/uL (3.8-10.6)
[2018-07-16] MEDS: LACTATED RINGERS 1,000 ML IV SCH ×2 (07:49→21:45)
[2018-07-16] MEDS ORDERED: fentaNYL (PF) 50 MCG/ML 2 ML AMP ONE (08:08)
[2018-07-16] MEDS ORDERED: METOCLOPRAMIDE 5 MG/ML 2 ML VIAL ONE (08:08)
[2018-07-16] MEDS ORDERED: OXYTOCIN 10 UNIT/ML 1 ML VIAL ONE (08:08)
[2018-07-16] MEDS ORDERED: ePHEDrine SULFATE/0.9% NACL/PF 50 MG/5 ML SYRINGE IV ONE (08:08)
[2018-07-16] MEDS ORDERED: KETOROLAC 30 MG/ML 1 ML VIAL ONE (08:08)
[2018-07-16] MEDS ORDERED: MORPHINE SULFATE (PF) 0.3 MG/0.3 ML SYR ONE (08:08)
[2018-07-16] MEDS ORDERED: ONDANSETRON 4 MG/2 ML VIAL ONE (08:08)
[2018-07-16] MEDS ORDERED: diphenhydrAMINE 50 MG/ML 1 ML VIAL ONE (08:08)
[2018-07-16] MEDS ORDERED: ACETAMINOPHEN TAB 325 MG TAB PO PRN (08:52)
[2018-07-16] MEDS ORDERED: ZOLPIDEM 5 MG TAB PO PRN (08:52)
[2018-07-16] MEDS ORDERED: diphenhydrAMINE 50 MG/ML 1 ML VIAL IVP PRN ×2 (08:52)
[2018-07-16] MEDS ORDERED: HYDROcodone/APAP 7.5-325MG 1 EACH TAB PO PRN (08:52)
[2018-07-16] MEDS ORDERED: diphenhydrAMINE 25 MG CAP PO PRN (08:52)
[2018-07-16] MEDS ORDERED: METOCLOPRAMIDE 5 MG/ML 2 ML VIAL IVP PRN (08:52)
[2018-07-16] MEDS ORDERED: ONDANSETRON 4 MG/2 ML VIAL IVP PRN (08:52)
[2018-07-16] MEDS ORDERED: NALOXONE 0.4 MG/ML 1 ML VIAL IV PRN (08:52)
[2018-07-16] MEDS ORDERED: diphenhydrAMINE 50 MG CAP PO PRN (08:52)
--- NOTE | 2018-07-16 08:55 | P.HPOB ---
History of Present Illness H&P Date: 07/16/18 Chief Complaint: Intrauterine at term: Prior section: Family planning Isela is a 28-year-old G for P3 with 3 prior sections who is scheduled for same with tubal ligation. Her course was generally uncomplicated although she did have some sacral pain and lightheadedness in the early third trimester. Otherwise she was doing very well. Pertinent labs included B+ blood type, rubella was immune, hepatitis B surface antigen was negative as was HIV. Her RPR was also nonreactive. heart tones were category 1 tracing this morning prior to going for her section. All questions were answered for her prior to proceeding to the section and risks/benefits/ alternatives were reviewed. Past Medical History Past Medical History: No Reported History Additional Past Medical History / Comment(s): migraine headaches, Seasonal headaches History of Any Multi-Drug Resistant Organisms: None Reported Past Surgical History: Section Additional Past Surgical History / Comment(s): C-sections x 3 Past Anesthesia/Blood Transfusion Reactions: No Reported Reaction Past Psychological History: Anxiety, Depression Additional Psychological History / Comment(s): Pt states she has "really bad anxiety" and is normally on medication for this but is currently taken herself off due to . She resides family and her 2 children, a boy age 3yrs and a girl age 1 yr[address] not [address] Family takes her to [employer]. Smoking Status: Former smoker Past Alcohol Use History: None Reported Additional Past Alcohol Use History / Comment(s): Pt states she smoked from age [age] yrs. She then quit and restarted smoking earlier this year and quit 2 days ago. - Past Family History Mother Family Medical History: No Reported History Father History Unknown: Yes Family Medical History: No Reported History Additional Family Medical History / Comment(s): Pt has never known her father other than he lives in [place]. Medications and Allergies Home Medications Medication Instructions Recorded Confirmed Type diphenhydrAMINE [Benadryl] 25 mg PO DAILY PRN 02/28/18 07/16/18 History Allergies Allergy/AdvReac Type Severity Reaction Status Date / Time No Known Allergies Allergy Verified 07/16/18 06:05 Exam Osteopathic Statement: *. No significant issues noted on an osteopathic structural exam other than those noted in the History and Physical/Consult. Vital Signs Temp Pulse Resp BP 07/16/18 06:10 97.5 F L 103 H 16 107/68 Intake and Output 07/15/18 07/16/18 07/16/18 22:59 06:59 14:59 Other: Weight 79.379 kg - OBG Physical Exam Breast: both: normal (no masses) Abdomen: bowel sounds normal, no diffuse tenderness, no bruit present, no guarding noted, no hepatomegaly, no splenomegaly, no mass Vulva: both: normal Vagina: normal moisture, no discharge Cervix: no lesion, no discharge Uterus: normal size, normal contour Adnexa: both: normal Anus/Rectum: normal perianal skin, no rectal mass, no hemorrhoids, heme negative Results Result Diagrams: 07/16/18 06:40 Abnormal Lab Results - Last 24 Hours (Table) 07/16/18 Range/Units 06:40 WBC 11.1 H (3.8-10.6) k/uL RBC 3.44 L (3.80-5.40) m/uL Hgb 9.7 L (11.4-16.0) gm/dL Hct 28.9 L (34.0-46.0) % Neutrophils # 7.8 H (1.3-7.7) k/uL
--- NOTE | 2018-07-16 08:59 | P.OP ---
Date of Procedure: 07/16/18 Preoperative Diagnosis: Intrauterine term: Family planning: Prior section Postoperative Diagnosis: Same Procedure(s) Performed: Repeat low-transverse section with bilateral partial salpingectomy Anesthesia: spinal Surgeon: Jonathan Garibay Material Requirements Worker #1: Jesusita Lazo Estimated Blood Loss (ml): 600 Pathology: none sent Condition: stable Disposition: floor Operative Findings: Male scores of 9 and 9 at one and 5 minutes respectively and weight was 8 lbs. 1 oz. Description of Procedure: Patient was taken to the operating suite where a spinal anesthetic was found be adequate. She was prepped and draped in normal sterile fashion and placed in dorsal supine position with leftward tilt. Initially a Pfannenstiel skin incision was made this incision was then carried through to underlying layer of the fascia with the second knife. Fascia was then nicked in the midline and this opening was extended laterally with Cross scissors. Superior and inferior aspect of this incision were then grasped tented up and bluntly and sharply dissected off the rectus muscles. Rectus muscles were then divided the midline and blunt dissection through the peritoneum was made. This opening was then extended superiorly and inferiorly with good visualization of both bowel bladder. Bladder blade was then placed and the bladder flap identified. It was entered sharply with Metzenbaum scissors and this was extended across face uterus with Metzenbaum scissors and then the bladder was bluntly dissected out of the operative field. Knife was then used to incise uterus this opening was then fully developed with hemostat and then bluntly extended. Once this was accomplished despite traction try to elevate the baby's head into the incision on we were unable to get the baby to come all the way into the incisions therefore a vacuum was applied to the baby's head in appropriate position, it was pumped up to the lowest level of green indicating proper millimeters mercury pressure and then using just very gentle traction we're able to bring the baby's head into the incision Rodney in less than 5 seconds. Mouth nares were then bulb suctioned anterior posterior shoulders were delivered with gentle downward upper traction followed by the remainder the baby. Umbilical cord was then clamped cut usual fashion an nursery personnel was present to assume care. Placenta was then delivered intact and Pitocin was added to the IV. Uterus was then exteriorized cleared of clots and debris and closed in 1 layer with 0 Vicryl suture. Bladder flap was then reapproximated with 3-0 Vicryl. Attention was then turned to the fallopian tubes and using hemostat the tube was grasped both the right and left side 3 cm from uterine cornu and a window was created in the mesosalpinx. 2 proximal to distal 2-0 silk sutures were then placed and intervening approximately 2 cm segment was excised. TIPS were then cauterized and uterus following removal blood and debris from the posterior cul-de-sac was reinserted into the abdomen. Peritoneal layer was then closed with 0 Vicryl suture fascial layer was closed with 0 Vicryl suture one layer of 3-0 Vicryl was placed in deep subcuticular tissues to reapproximate skin and close the space, skin was then closed with 3-0 Vicryl subcuticularly.
[2018-07-16] MEDS ORDERED: INFLUENZA VACCINE (6 MOS+) 60 MCG/0.5 ML SYRINGE IM ONE (10:22)
[2018-07-16] MEDS: KETOROLAC 30 MG/ML 1 ML VIAL IVP PRN ×2 (14:39→20:14)
[2018-07-16] MEDS ORDERED: PROMETHAZINE INJ 6.25 MG in SODIUM CHLORIDE 0.9% 50 ML IVPB PRN (18:02)
[2018-07-16] MEDS: SENNOSIDES-DOCUSATE SODIUM 1 EACH TAB PO SCH (21:47)
[2018-07-17] MEDS: LACTATED RINGERS 1,000 ML IV SCH ×2 (00:13→13:48)
[2018-07-17] MEDS: KETOROLAC 30 MG/ML 1 ML VIAL IVP PRN ×2 (02:33→08:52)
[2018-07-17 08:04] LABS: Basophils % (A) 0 %; Eosinophils # (A) 0.1 k/uL (0-0.7); Eosinophils % (A) 1 %; HCT 24.4 % (34.0-46.0); Hypochromasia Slight; Lymphocytes # (A) 1.8 k/uL (1.0-4.8); Lymphocytes % (A) 16 %; MCH 28.2 pg (25.0-35.0); MCHC 33.1 g/dL (31.0-37.0); MCV 85.4 fL (80.0-100.0); Monocytes # (A) 0.6 k/uL (0-1.0); Monocytes % (A) 5 %; Neutrophils # (A) 8.5 k/uL (1.3-7.7); Neutrophils % (A) 76 %; Platelet Count 279 k/uL (150-450); RBC 2.85 m/uL (3.80-5.40); RDW 14.6 % (11.5-15.5); WBC 11.2 k/uL (3.8-10.6)
[2018-07-17 08:07] LABS: HGB 8.1 gm/dL (11.4-16.0)
[2018-07-17] MEDS: SENNOSIDES-DOCUSATE SODIUM 1 EACH TAB PO SCH ×2 (08:53→22:07)
--- NOTE | 2018-07-17 13:08 | P.PN ---
Progress Note - Text Anesthesia POD 1. Patient is status post section under spinal anesthesia with intra-thecal preservative free morphine 300 g. Mild pruritus, excellent post-op analgesia, and no headache or other complication.
[2018-07-17] MEDS: IBUPROFEN 600 MG TAB PO PRN ×2 (15:52→22:07)
[2018-07-17] MEDS ORDERED: Acetaminophen-Codeine 300-30mg TAB PO PRN (16:29)
[2018-07-17] MEDS: Acetaminophen-Codeine 300-30mg TAB PO PRN (18:09)
[2018-07-18] MEDS: Acetaminophen-Codeine 300-30mg TAB PO PRN ×2 (01:12→08:59)
[2018-07-18] MEDS: IBUPROFEN 600 MG TAB PO PRN (03:55)
--- NOTE | 2018-07-18 06:33 | P.PNOBGPC ---
Subjective - Subjective Patient reports: Reports appetite normal, Reports voiding normally, Reports pain well controlled, Reports ambulating normally : doing well Objective - Vital Signs Latest vital signs: Vital Signs Temp Pulse Resp BP Pulse Ox 07/17/18 23:01 98.0 F 76 16 112/70 98 07/17/18 15:57 97.9 F 76 16 106/64 07/17/18 08:55 97.7 F 80 16 101/59 99 Intake and Output 07/17/18 07/17/18 07/18/18 14:59 22:59 06:59 Output Total 700 Balance -700 Output: Urine 700 Other: # Voids 2 2 - Exam Lungs: bilateral: normal Chest: Normal S1, Normal S2 Extremities: Present: normal Abdomen: Present: normal appearance, soft. Absent: distention, tenderness Incision: Present: normal, dry, intact Uterus: Present: normal, firm - Labs Labs: Abnormal Lab Results - Last 24 Hours (Table) 07/17/18 Range/Units 07:25 WBC 11.2 H (3.8-10.6) k/uL RBC 2.85 L (3.80-5.40) m/uL Hgb 8.1 L D (11.4-16.0) gm/dL Hct 24.4 L (34.0-46.0) % Neutrophils # 8.5 H (1.3-7.7) k/uL Assessment and Plan Assessment: Postoperative day #2. Patient is resting without complaints wishes to go home. Vital signs are stable she is afebrile. Hemoglobin yesterday was 8.1 and preoperatively was 9.7 so this is an appropriate drop and consistent with chronic anemia. Patient states that she has been taking some iron at home as instructed by Dr. Garibay. Patient is tolerating regular diet, ambulating, urinating without difficulty. Her incision is intact and dry eye feel she is stable for discharge home today follow with Dr. Garibay in 1 week. (1) delivery delivered Current Visit: No Status: Acute Code(s): O82 - ENCOUNTER FOR DELIVERY WITHOUT INDICATION SNOMED Code(s): 205783414
--- NOTE | 2018-07-18 06:42 | P.DS ---
Providers Date of admission: 07/16/18 05:55 Expected date of discharge: 07/18/18 Attending physician: Jonathan Garibay Primary care physician: Stated None - Discharge Diagnosis(es) (1) delivery delivered Current Visit: No Status: Acute Hospital Course: Please see dictated H&P and operative note per Dr. Garibay and this patient's admission. Brief summary this is a 28-year-old 4 para 3 female 39 and one sevenths weeks gestation admitted to labor and delivery for elective repeat section and tubal ligation. Patient undergoes above-named surgery. Postoperatively the patient does well and on postoperative 2 was felt be stable for discharge home. Note the patient does have some chronic anemia we'll continue take iron therapy home. Follow-up with Dr. Garibay in approximately 1 week. Procedures: Repeat low transverse section and bilateral partial salpingectomy. Patient Condition at Discharge: Good Plan - Discharge Summary New Discharge Prescriptions: New Acetaminophen-Codeine 300-30mg [Tylenol w/codeine #3] 2 each PO Q4HR PRN #36 tab PRN Reason: Pain Ibuprofen [Motrin] 600 mg PO Q6HR PRN #40 tab PRN Reason: Mild Pain Or Fever >= 100.5 No Action diphenhydrAMINE [Benadryl] 25 mg PO DAILY PRN PRN Reason: Allergy Symptoms Discharge Medication List diphenhydrAMINE [Benadryl] 25 mg PO DAILY PRN 02/28/18 [History] Acetaminophen-Codeine 300-30mg [Tylenol w/codeine #3] 2 each PO Q4HR PRN #36 tab 07/18/18 [Rx] Ibuprofen [Motrin] 600 mg PO Q6HR PRN #40 tab 07/18/18 [Rx] Follow up Appointment(s)/Referral(s): Jonathan Garibay DO [Doctor of Osteopathic Medicine] - 07/25/18 2:00 pm (Patient also has a appointment with Dr. Garibay in August 28 at 1:45 PM.) Patient Instructions/Handouts: (DC) Activity/Diet/Wound Care/Special Instructions: No heavy lifting or strenuous activity for 6 weeks. No intercourse or anything per vagina for 6 weeks. Please call if any fever, chills, excessive vaginal bleeding, and/or abdominal pain. Discharge Disposition: HOME SELF-CARE
[2018-07-18 09:48] VITALS: PULSE 68; RESP 18
[2018-07-18 09:49] VITALS: BP 106/68; TEMP 97
== END 2018-07-18 11:35 | disposition home or self-care (01) | DRG 785 ==
LOC: 4FBP 05:55
PROVIDERS: ADMIT Obstetrics & Gynecology; ATTEND Obstetrics & Gynecology
PROC: 0UB70ZZ Excision of Bilateral Fallopian Tubes, Open Approach (ICD-10-PCS; 2018-07-16)
PROC: 3E0234Z Introduction of Serum, Toxoid and Vaccine into Muscle, Percutaneous Approach (ICD-10-PCS; 2018-07-16)
PROC: 10D00Z1 Extraction of Products of Conception, Low, Open Approach (ICD-10-PCS; principal; 2018-07-16 08:00)
DX: O34.211 Maternal care for low transverse scar from previous cesarean delivery (principal); D64.9 Anemia, unspecified; O99.02 Anemia complicating childbirth; M53.3 Sacrococcygeal disorders, not elsewhere classified; O99.344 Other mental disorders complicating childbirth; F32.9 Major depressive disorder, single episode, unspecified; F41.9 Anxiety disorder, unspecified; Z3A.39 39 weeks gestation of pregnancy; Z37.0 Single live birth; Z30.2 Encounter for sterilization; Z23 Encounter for immunization; N85.8 Other specified noninflammatory disorders of uterus; L29.9 Pruritus, unspecified; G43.909 Migraine, unspecified, not intractable, without status migrainosus; Z87.891 Personal history of nicotine dependence
CPT/HCPCS: 85025; 86850; 86900; 86901; 88302; 90686

== ENCOUNTER → 2018-11-04 | Outpatient (CLI) | payer OTHER ==
--- NOTE | 2018-11-05 10:13 | XR ---
EXAMINATION TYPE: XR lumbar spine 2 or 3V DATE OF EXAM: 11/04/2018 COMPARISON: None HISTORY: Pain low back fall TECHNIQUE: Three-view lumbar spine FINDINGS: There 5 lumbar-type vertebral bodies. Pedicles are intact. Disc heights are preserved. Vert ebral body heights are preserved. IMPRESSION: 1. Normal three-view lumbar spine. 2. No acute abnormality radiographically apparent
--- NOTE | 2018-11-05 10:44 | XR ---
EXAMINATION TYPE: XR thoracic spine 2V DATE OF EXAM: 11/04/2018 COMPARISON: Cervical spine same date HISTORY: Fall, pain TECHNIQUE: Three-view thoracic spine. The upper thoracic spine is excluded from the [id number] on the frontal projection. FINDINGS: There are 12 thoracic type vertebral bodies. Pedicles are intact. Disc heights are preserve d. Vertebral body heights are preserved. Alignment is normal. IMPRESSION: 1. Normal three-view thoracic spine
--- NOTE | 2018-11-05 11:01 | XR ---
EXAMINATION TYPE: XR cervical spine comp DATE OF EXAM: 11/04/2018 COMPARISON: None HISTORY: Fall, pain TECHNIQUE: Cervical spine is examined in 5 projections FINDINGS: Prevertebral space is normal. Disc heights are preserved. Vertebral body heights are preser wendie. Foramen are patent. No acute fractures are evident. Tip of the odontoid is limited with overlyin g incisors. IMPRESSION: 1. Normal 5 view cervical spine
--- NOTE | 2018-11-05 11:21 | XR ---
EXAMINATION TYPE: XR Hip Complete RT DATE OF EXAM: 11/04/2018 COMPARISON: None HISTORY: Fall, pain TECHNIQUE: 2 view right hip FINDINGS: Femoral head articulates with the acetabulum. No acute fractures are evident. Mild joint sp michelle narrowing may be present. IMPRESSION: 1. No acute osseous abnormality.
--- NOTE | 2018-11-05 11:24 | XR ---
EXAMINATION TYPE: XR knee limited bilateral DATE OF EXAM: 11/04/2018 COMPARISON: None HISTORY: Fall, pain TECHNIQUE: Bilateral knees are examined in 2 projections each. FINDINGS: Joint spaces are preserved. No acute fractures are evident. No joint effusions are evident. IMPRESSION: 1. Normal bilateral knees
== END | disposition home or self-care (01) ==
LOC: RADXRMAIN 16:01
PROVIDERS: ATTEND Internal Medicine
DX: M25.551 Pain in right hip (principal); M25.569 Pain in unspecified knee
CPT/HCPCS: 72050; 72070; 72100; 73502

== ENCOUNTER 2019-02-12 12:45 | Emergency (ER) | payer OTHER ==
[2019-02-12 15:06] LABS: Basophils % (A) 1 %; Eosinophils # (A) 0.2 k/uL (0-0.7); Eosinophils % (A) 2 %; HCT 34.7 % (34.0-46.0); HGB 11.3 gm/dL (11.4-16.0); Lymphocytes # (A) 2.6 k/uL (1.0-4.8); Lymphocytes % (A) 29 %; MCH 28.4 pg (25.0-35.0); MCHC 32.7 g/dL (31.0-37.0); Mean Platelet Volume 7.1; Monocytes # (A) 0.6 k/uL (0-1.0); Monocytes % (A) 7 %; Neutrophils # (A) 5.2 k/uL (1.3-7.7); Neutrophils % (A) 59 %; Platelet Count 325 k/uL (150-450); RBC 3.98 m/uL (3.80-5.40); RDW 14.8 % (11.5-15.5); WBC 8.8 k/uL (3.8-10.6)
[2019-02-12 15:15] LABS: ALT 45 U/L (9-52); AST 44 U/L (14-36); Albumin 4.3 g/dL (3.5-5.0); Alkaline Phosphatase 102 U/L (38-126); Anion Gap 8 mmol/L; Blood Urea Nitrogen 11 mg/dL (7-17); Calcium 9.4 mg/dL (8.4-10.2); Carbon Dioxide 20 mmol/L (22-30); Chloride 111 mmol/L (98-107); Glucose 87 mg/dL (74-99); Potassium 4.1 mmol/L (3.5-5.1); Sodium 139 mmol/L (137-145); Total Bilirubin 0.3 mg/dL (0.2-1.3); Total Protein 7.3 g/dL (6.3-8.2)
--- NOTE | 2019-02-12 15:18 | XR ---
EXAMINATION TYPE: XR chest 2V DATE OF EXAM: 02/12/2019 COMPARISON: NONE HISTORY: Chest pain and shortness of breath. TECHNIQUE: Frontal and lateral views of the chest are obtained. FINDINGS: There is focal left diaphragm juxtaphrenic peaking suggesting atelectatic change. Right pk g is clear. No pleural effusion or pneumothorax is seen bilaterally. The cardiac silhouette size is within normal limits. The osseous structures are intact. IMPRESSION: Left basilar atelectasis suspected. No suspicious focal infiltrate.
[2019-02-12] MEDS ORDERED: ALPRAZolam 0.5 MG TAB PO STA (15:32)
--- NOTE | 2019-02-12 15:41 | ED ---
General Adult HPI - General Chief complaint: Abdominal Pain Stated complaint: abd pain and swelling Time Seen by Provider: 02/12/19 13:49 Source: patient Mode of arrival: ambulatory Limitations: no limitations - History of Present Illness Initial comments: 28-year-old female presenting today for chief complaint of anxiety. Patient states she has severe anxiety she has had this for years. She states she does not take medications however was recently evaluated primary care office where she was told to go to the mental health. Patient presented acutely mental health obstructed towards counseling. Patient states she is attending counseling she states she feels she needs more to abort the panic attacks. She states for the past 2 days she has had no adverse anxiety. She states that increases at night. She denies any chest pain or short of breath but she states she feels as though she is going to . She states this is causing her to have abdominal pain. She states she knows this because of anxiety. She's nicer being tenderness to palpation of the abdomen patient denies any vomiting or diarrhea shows fever chills night sweats. Patient denies . Patient denies any leg swelling remaining review of systems negative. Upon arrival patient appears well signs of acute distress. - Related Data Home Medications Medication Instructions Recorded Confirmed diphenhydrAMINE [Benadryl] 25 mg PO DAILY PRN 02/28/18 02/12/19 Previous Rx's Medication Instructions Recorded ALPRAZolam [Xanax] 0.25 mg PO DAILY PRN 4 Days #4 tab 02/12/19 Allergies Allergy/AdvReac Type Severity Reaction Status Date / Time No Known Allergies Allergy Verified 02/12/19 13:21 Review of Systems ROS Statement: Those systems with pertinent positive or pertinent negative responses have been documented in the HPI. ROS Other: All systems not noted in ROS Statement are negative. Past Medical History Past Medical History: No Reported History Additional Past Medical History / Comment(s): migraine headaches, Seasonal headaches History of Any Multi-Drug Resistant Organisms: None Reported Past Surgical History: Section Additional Past Surgical History / Comment(s): C-sections x 3 Past Anesthesia/Blood Transfusion Reactions: No Reported Reaction Past Psychological History: Anxiety, Depression Smoking Status: Former smoker Past Alcohol Use History: None Reported Past Drug Use History: None Reported - Past Family History Mother Family Medical History: No Reported History Father History Unknown: Yes Family Medical History: No Reported History Additional Family Medical History / Comment(s): Pt has never known her father other than he lives in [place]. General Exam - General Exam Comments Initial Comments: General: The patient is awake and alert, in no distress, and does not appear acutely ill. Eye: Pupils are equal, round and reactive to light, extra-ocular movements are intact. No nystagmus. There is normal conjunctiva bilaterally. No signs of icterus. Ears, nose, mouth and throat: There are moist mucous membranes and no oral lesi ons. Neck: The neck is supple, there is no tenderness or JVD. Cardiovascular: There is a regular rate and rhythm. No murmur, rub or gallop is appreciated. Respiratory: Lungs are clear to auscultation, respirations are non-labored, breath sounds are equal. No wheezes, stridor, rales, or rhonchi. Gastrointestinal: Soft, non-distended, non-tender abdomen without masses or organomegaly noted. There is no rebound or guarding present. No CVA tenderness. Bowel sounds are unremarkable. Musculoskeletal: Normal ROM, no tenderness. Strength 5/5. Sensation intact. Pulses equal bilaterally 2+. Neurological: A&O x 3. CN II-XII intact, There are no obvious motor or sensory deficits. Coordination appears grossly intact. Speech is normal. Skin: Skin is warm and dry and no rashes or lesions are noted. No lower extre mity edema, negative Homans bilaterally. Psychiatric: Cooperative, appropriate mood & affect, normal judgment. Limitations: no limitations Course Vital Signs 02/12/19 13:07 Temperature 98.5 F Pulse Rate 92 Respiratory 20 Rate Blood Pressure 118/80 O2 Sat by Pulse 99 Oximetry EKG Findings - EKG Comments: EKG Findings:: A 12-lead EKG was performed and shows the following: Rate is 76bpm, and rhythm is normal sinus. There are normal QRS complexes and normal R- wave progression. ST segments have no elevation or depression, and AR segments appear normal. AR interval 140 ms, to her administration 98 ms, QT/QTC 414/465 ms. Normal sinus with sinus arrhythmia. EKG interpreted by myself as well as attending provider Dr. Alegre Medical Decision Making - Medical Decision Making 28 year old female presents today for chief complaint of anxiety. Patient states she has seen her primary care provider for this complaint is currently being evaluated at [facility] and going to counseling. Patient states she feels as though she needs something to abort panic attacks when she has them. Patient has no point localized a dull pain on examination. Patient denies chest pain. Patient does admit to feeling like she has an upset stomach. Patient assures of breath or pain with deep inspiration. Laboratory studies unremarkable. Troponin negative no acute EKG findings. At this time to discuss the case with a primary doctor Codey and providing examined X and emergency department refill patient still for discharge with outpatient counseling primary care follow-up as well as a short prescription for xanax to use as an abortive therapy. Return parameters as well as appropriate use of xanax were discussed with patient prior to discharge. Patient is requesting discharge appearing well. - Lab Data Result diagrams: 02/12/19 14:39 02/12/19 14:35 Lab Results 02/12/19 02/12/19 02/12/19 Range/Units 14:35 14:35 14:39 WBC 8.8 (3.8-10.6) k/uL RBC 3.98 (3.80-5.40) m/uL Hgb 11.3 L (11.4-16.0) gm/dL Hct 34.7 (34.0-46.0) % MCV 87.0 (80.0-100.0) fL MCH 28.4 (25.0-35.0) pg MCHC 32.7 (31.0-37.0) g/dL RDW 14.8 (11.5-15.5) % Plt Count 325 (150-450) k/uL Neutrophils % 59 % Lymphocytes % 29 % Monocytes % 7 % Eosinophils % 2 % Basophils % 1 % Neutrophils # 5.2 (1.3-7.7) k/uL Lymphocytes # 2.6 (1.0-4.8) k/uL Monocytes # 0.6 (0-1.0) k/uL Eosinophils # 0.2 (0-0.7) k/uL Basophils # 0.0 (0-0.2) k/uL Sodium 139 (137-145) mmol/L Potassium 4.1 (3.5-5.1) mmol/L Chloride 111 H (98-107) mmol/L Carbon Dioxide 20 L (22-30) mmol/L Anion Gap 8 mmol/L BUN 11 (7-17) mg/dL Creatinine 0.61 (0.52-1.04) mg/dL Est GFR (CKD-EPI)AfAm >90 (>60 ml/min/1.73 sqM) Est GFR (CKD-EPI)NonAf >90 (>60 ml/min/1.73 sqM) Glucose 87 (74-99) mg/dL Calcium 9.4 (8.4-10.2) mg/dL Total Bilirubin 0.3 (0.2-1.3) mg/dL AST 44 H (14-36) U/L ALT 45 (9-52) U/L Alkaline Phosphatase 102 (38-126) U/L Troponin I <0.012 (0.000-0.034) ng/mL Total Protein 7.3 (6.3-8.2) g/dL Albumin 4.3 (3.5-5.0) g/dL Disposition Clinical Impression: Anxiety, Abdominal pain Disposition: HOME SELF-CARE Condition: Good Instructions (If sedation given, give patient instructions): Anxiety (ED) Additional Instructions: Please use medication as discussed. Please follow-up with family doctor in the next 2 days of symptoms have not improved. Please return to emergency room if the symptoms increase or worsen or for any other concerns. Prescriptions: ALPRAZolam [Xanax] 0.25 mg PO DAILY PRN 4 Days #4 tab PRN Reason: Anxiety Is patient prescribed a controlled substance at d/c from ED?: Yes When asked, does pt state using other controlled substances?: No If prescribed controlled substance>3 days was MAPS reviewed?: Prescribed <3 Days Referrals: Jomar Collazo MD [Primary Care Provider] - 1-2 days Time of Disposition: 15:41
[2019-02-12 16:20] VITALS: BP 123/80; PULSE 91; RESP 18; TEMP 98.7
== END 2019-02-12 16:16 | disposition home or self-care (01) ==
LOC: EC 12:45
DX: F41.9 Anxiety disorder, unspecified (principal); R10.9 Unspecified abdominal pain; Z87.891 Personal history of nicotine dependence
CPT/HCPCS: 36415; 71046; 80053; 84484; 85025; 93005; 99284

== ENCOUNTER 2019-08-03 14:42 | Emergency (ER) | payer OTHER ==
[2019-08-03 15:07] VITALS: BP 114/70; PULSE 113; RESP 20; TEMP 97.8
[2019-08-03] MEDS ORDERED: ALPRAZolam 1 MG TAB PO STA (15:15)
[2019-08-03] MEDS ORDERED: HYDROcodone/APAP 5-325MG 1 EACH TAB PO STA (15:16)
--- NOTE | 2019-08-03 15:46 | XR ---
EXAMINATION TYPE: XR tibia fibula RT DATE OF EXAM: 08/03/2019 COMPARISON: NONE HISTORY: Leg pain TECHNIQUE: 3 views FINDINGS: Tibia and fibula appear intact. I see no fracture nor dislocation. IMPRESSION: Negative right tibia and fibula exam.
[2019-08-03] MEDS ORDERED: ACET/COD 300 MG/30 MG STARTER PACK 6 TAB BTL PO STA (15:53)
--- NOTE | 2019-08-03 15:53 | ED ---
Lower Extremity Injury HPI - General Chief Complaint: Extremity Injury, Lower Stated Complaint: Leg injury Time Seen by Provider: 08/03/19 15:11 Source: patient, RN notes reviewed Mode of arrival: ambulatory Limitations: no limitations - History of Present Illness Initial Comments: 29-year-old female presents emergency from chief complaint of right leg pain. Patient states that she was jumping over an object at home states that she landed on her leg properly. She has pain down her fibula on right leg. She states since from just past her knee always her ankle. Denies any foot pain. She states it's painful. She does admit that she has anxiety issues and she is very anxious. At the hospital. Denies any chest pain or shortness breath. Denies any other muscle skeletal injuries. - Related Data Home Medications Medication Instructions Recorded Confirmed diphenhydrAMINE [Benadryl] 25 mg PO DAILY PRN 02/28/18 02/12/19 Previous Rx's Medication Instructions Recorded ALPRAZolam [Xanax] 0.25 mg PO DAILY PRN 4 Days #4 tab 02/12/19 Allergies Allergy/AdvReac Type Severity Reaction Status Date / Time No Known Allergies Allergy Verified 08/03/19 15:07 Review of Systems ROS Statement: Those systems with pertinent positive or pertinent negative responses have been documented in the HPI. ROS Other: All systems not noted in ROS Statement are negative. Past Medical History Past Medical History: No Reported History Additional Past Medical History / Comment(s): migraine headaches, Seasonal headaches History of Any Multi-Drug Resistant Organisms: None Reported Past Surgical History: Section Additional Past Surgical History / Comment(s): C-sections x 3 Past Anesthesia/Blood Transfusion Reactions: No Reported Reaction Past Psychological History: Anxiety, Depression Smoking Status: Former smoker Past Alcohol Use History: None Reported Past Drug Use History: None Reported - Past Family History Mother Family Medical History: No Reported History Father History Unknown: Yes Family Medical History: No Reported History Additional Family Medical History / Comment(s): Pt has never known her father other than he lives in [place]. General Exam Limitations: no limitations General appearance: alert, in no apparent distress, anxious Head exam: Present: atraumatic, normocephalic, normal inspection Eye exam: Present: normal appearance, PERRL, EOMI. Absent: scleral icterus, conjunctival injection, periorbital swelling Respiratory exam: Present: normal lung sounds bilaterally. Absent: respiratory distress, wheezes, rales, rhonchi, stridor Cardiovascular Exam: Present: normal rhythm, tachycardia, normal heart sounds. Absent: systolic murmur, diastolic murmur, rubs, gallop, clicks Extremities exam: Present: other (Right leg there is moderate tenderness to lateral leg distal to knee and proximal to the ankle. There is no swelling no ecchymosis neurovascular intact) Skin exam: Present: warm, dry, intact, normal color. Absent: rash Course Vital Signs 08/03/19 15:03 Temperature 97.8 F Pulse Rate 113 H Respiratory 20 Rate Blood Pressure 114/70 O2 Sat by Pulse 98 Oximetry Medical Decision Making - Medical Decision Making X-ray of the right tib-fib are negative for acute fracture. Patient is right l eg strain. Patient will be discharged with follow-up return parameters were discussed Disposition Clinical Impression: Muscle strain of right lower leg Disposition: HOME SELF-CARE Condition: Stable Instructions (If sedation given, give patient instructions): Leg Pain (ED) Additional Instructions: Please return to the Emergency Department if symptoms worsen or any other concerns. Is patient prescribed a controlled substance at d/c from ED?: No Referrals: Jomar Collazo MD [Primary Care Provider] - 1-2 days Park Hernandez DO [Doctor of Osteopathic Medicine] - 1-2 days Time of Disposition: 15:53
== END 2019-08-03 16:44 | disposition home or self-care (01) ==
LOC: EC 14:42
DX: S86.911A Strain of unspecified muscle(s) and tendon(s) at lower leg level, right leg, initial encounter (principal); F41.9 Anxiety disorder, unspecified; Z87.891 Personal history of nicotine dependence; W17.89XA Other fall from one level to another, initial encounter; Y93.39 Activity, other involving climbing, rappelling and jumping off; Y92.009 Unspecified place in unspecified non-institutional (private) residence as the place of occurrence of the external cause
CPT/HCPCS: 73590; 99283; L4350

== ENCOUNTER 2019-09-08 08:27 | Emergency (ER) | payer OTHER ==
[2019-09-08 08:35] VITALS: RESP 18; TEMP 97.8
[2019-09-08] MEDS ORDERED: LORazepam 1 MG TAB PO STA (08:49)
[2019-09-08] MEDS ORDERED: MAG HYDROX/AL HYDROX/SIMETH 30 ML, HYOSCYAMINE ELIXIR 10 ML PO STA ×2 (08:49)
[2019-09-08 09:20] LABS: Appearance,Urine Cloudy (Clear); Bacteria,Urine Few /hpf; Bilirubin,Urine Negative (Negative); Blood,Urine Negative (Negative); Color,Urine Yellow; Glucose,Urine (UA) Negative (Negative); Ketones,Urine Negative (Negative); Leukocyte Esterase,Urine Trace (Negative); Mucus,Urine Occasional /hpf; Nitrite,Urine Negative (Negative); Protein,Urine Trace (Negative); RBC,Urine 2 /hpf (0-5); Specific Gravity,Urine 1.016 (1.001-1.035); Squamous Epithelial Cell,Urine 8 /hpf (0-4); Urobilinogen,Urine <2.0 mg/dL (<2.0); WBC,Urine 7 /hpf (0-5)
--- NOTE | 2019-09-08 09:45 | ED ---
Abdominal Pain HPI - General Chief Complaint: Abdominal Pain Stated Complaint: abdominal pain Time Seen by Provider: 09/08/19 08:30 Source: patient, EMS, RN notes reviewed Mode of arrival: EMS Limitations: no limitations - History of Present Illness Initial Comments: 29-year-old female presents emergency Department chief complaint of dysuria. Patient states she woke up this morning states went to bathroom states that she had some uncomfortable feeling. Patient states this one started hurting she's had no vomiting today she felt very anxious and nauseated no chest pain or shortness breath denies any diarrhea constipation no fevers or chills. Denies any chance she has had prior tubal ligation. - Related Data Home Medications Medication Instructions Recorded Confirmed diphenhydrAMINE [Benadryl] 25 mg PO DAILY PRN 02/28/18 02/12/19 Previous Rx's Medication Instructions Recorded ALPRAZolam [Xanax] 0.25 mg PO DAILY PRN 4 Days #4 tab 02/12/19 Cephalexin [Keflex] 500 mg PO Q8HR #21 cap 09/08/19 Omeprazole [PriLOSEC] 20 mg PO AC-BRKFST #14 cap 09/08/19 Allergies Allergy/AdvReac Type Severity Reaction Status Date / Time No Known Allergies Allergy Verified 08/03/19 15:07 Review of Systems ROS Statement: Those systems with pertinent positive or pertinent negative responses have been documented in the HPI. ROS Other: All systems not noted in ROS Statement are negative. Past Medical History Past Medical History: No Reported History Additional Past Medical History / Comment(s): migraine headaches, Seasonal headaches uti History of Any Multi-Drug Resistant Organisms: None Reported Past Surgical History: Section Additional Past Surgical History / Comment(s): C-sections x 4 Past Anesthesia/Blood Transfusion Reactions: No Reported Reaction Past Psychological History: Anxiety, Depression Smoking Status: Former smoker Past Alcohol Use History: None Reported Past Drug Use History: Marijuana - Past Family History Mother Family Medical History: No Reported History Father History Unknown: Yes Family Medical History: No Reported History Additional Family Medical History / Comment(s): Pt has never known her father other than he lives in [place]. General Exam Limitations: no limitations General appearance: alert, in no apparent distress Head exam: Present: atraumatic, normocephalic, normal inspection Eye exam: Present: normal appearance, PERRL, EOMI. Absent: scleral icterus, conjunctival injection, periorbital swelling ENT exam: Present: normal exam, normal oropharynx, mucous membranes moist Neck exam: Present: normal inspection. Absent: tenderness, meningismus, l ymphadenopathy Respiratory exam: Present: normal lung sounds bilaterally. Absent: respiratory distress, wheezes, rales, rhonchi, stridor Cardiovascular Exam: Present: regular rate, normal rhythm, normal heart sounds. Absent: systolic murmur, diastolic murmur, rubs, gallop, clicks GI/Abdominal exam: Present: soft, tenderness (Minimal suprapubic, epigastric), normal bowel sounds. Absent: distended, guarding, rebound, rigid Neurological exam: Present: alert, oriented X3 Psychiatric exam: Present: anxious Course Vital Signs 09/08/19 08:31 Temperature 97.8 F Pulse Rate 65 Respiratory 18 Rate Blood Pressure 122/72 O2 Sat by Pulse 100 Oximetry Medical Decision Making - Medical Decision Making Patient is very anxious and was given Ativan, symptoms improved, patient denies being suicidal or homicidal. Patient had dysuria and urinalysis shows mild contamination. Patient does have some epigastric GERD type symptoms was given GI cocktail symptoms improved patient be discharged return parameters were discussed. - Lab Data Lab Results 09/08/19 09/08/19 Range/Units 08:45 08:45 Urine Color Yellow Urine Appearance Cloudy H (Clear) Urine pH 6.0 (5.0-8.0) Ur Specific [place] 1.016 (1.001-1.035) Urine Protein Trace H (Negative) Urine Glucose (UA) Negative (Negative) Urine Ketones Negative (Negative) Urine Blood Negative (Negative) Urine Nitrite Negative (Negative) Urine Bilirubin Negative (Negative) Urine Urobilinogen <2.0 (<2.0) mg/dL Ur Leukocyte Esterase Trace H (Negative) Urine RBC 2 (0-5) /hpf Urine WBC 7 H (0-5) /hpf Ur Squamous Epith Cells 8 H (0-4) /hpf Urine Bacteria Few H (None) /hpf Urine Mucus Occasional H (None) /hpf Urine HCG, Qual Not Detected (Not Detectd) Disposition Clinical Impression: Dysuria, Anxiety, Gastritis Disposition: HOME SELF-CARE Condition: Stable Instructions (If sedation given, give patient instructions): Dysuria (ED) Additional Instructions: Please return to the Emergency Department if symptoms worsen or any other concerns. Prescriptions: Cephalexin [Keflex] 500 mg PO Q8HR #21 cap Omeprazole [PriLOSEC] 20 mg PO AC-BRKFST #14 cap Is patient prescribed a controlled substance at d/c from ED?: No Referrals: Jomar Collazo MD [Primary Care Provider] - 1-2 days Time of Disposition: 09:44
[2019-09-08 10:01] VITALS: BP 116/76; PULSE 62
== END 2019-09-08 10:00 | disposition home or self-care (01) ==
LOC: EC 08:27
DX: K29.70 Gastritis, unspecified, without bleeding (principal); R30.0 Dysuria; F41.9 Anxiety disorder, unspecified; Z87.891 Personal history of nicotine dependence
CPT/HCPCS: 81001; 81025; 99284

== ENCOUNTER 2019-11-09 12:05 | Emergency (ER) | payer OTHER ==
[2019-11-09 12:09] VITALS: RESP 18
[2019-11-09 13:00] LABS: Appearance,Urine Cloudy (Clear); Bacteria,Urine Many /hpf; Bilirubin,Urine Negative (Negative); Blood,Urine Negative (Negative); Color,Urine Yellow; Glucose,Urine (UA) Negative (Negative); Ketones,Urine Negative (Negative); Leukocyte Esterase,Urine Moderate (Negative); Mucus,Urine Many /hpf; Nitrite,Urine Positive (Negative); Protein,Urine Trace (Negative); RBC,Urine 2 /hpf (0-5); Squamous Epithelial Cell,Urine 6 /hpf (0-4); WBC,Urine 22 /hpf (0-5)
[2019-11-09 13:04] LABS: Amphetamine Screen,Urine Detected (NotDetected); Barbiturate Screen,Urine Not Detected (NotDetected); Benzodiazepines Screen,Urine Not Detected (NotDetected); Cocaine Screen,Urine Not Detected (NotDetected); Methadone Screen, Urine Not Detected (NotDetected); Opiate Screen,Urine Not Detected (NotDetected); Oxycodone Screen, Urine Not Detected (NotDetected); Phencyclidine Screen,Urine Not Detected (NotDetected); Tricyclic Antidepressant,Urine Not Detected (NotDetected); Urn Cannabinoid Scrn Detected (NotDetected)
--- NOTE | 2019-11-09 13:20 | XR ---
EXAMINATION TYPE: XR lumbar spine 2 or 3V , 3 VIEWS DATE OF EXAM ORDERED: 11/09/2019 HISTORY: pain. COMPARISON: Previous study dated 11/04/2018. FINDINGS: Vertebral body height and alignment are maintained. There is no spinal IMPRESSION: NORMAL APPEARING LUMBAR SPINE.
--- NOTE | 2019-11-09 13:50 | ED ---
Back Pain HPI - General Chief Complaint: Back Pain/Injury Stated Complaint: anxiety, low back pain Time Seen by Provider: 11/09/19 12:18 Source: patient, RN notes reviewed Limitations: no limitations - History of Present Illness Initial Comments: This a 21-year-old female presents emergency Department with multiple complaints. Patient states that she's been having chronic back issues states that she is attempting to go through process of social security disability. Patient states that she has 4 kids at home and states that the pain gets unbearable at times. She states that she's also been very anxious recently and states that she visited her heart is racing but it comes and goes. Patient states that she also noticed a bunch of sores on her nose, face. Patient has h ad no prior cardiac disease denies any abdominal pain. Patient has some urinary frequency. - Related Data Home Medications Medication Instructions Recorded Confirmed diphenhydrAMINE [Benadryl] 25 mg PO DAILY PRN 02/28/18 02/12/19 Previous Rx's Medication Instructions Recorded ALPRAZolam [Xanax] 0.25 mg PO DAILY PRN 4 Days #4 tab 02/12/19 Omeprazole [PriLOSEC] 20 mg PO AC-BRKFST #14 cap 09/08/19 Cephalexin [Keflex] 500 mg PO Q8HR #21 cap 11/09/19 Allergies Allergy/AdvReac Type Severity Reaction Status Date / Time No Known Allergies Allergy Verified 11/09/19 12:09 Review of Systems ROS Statement: Those systems with pertinent positive or pertinent negative responses have been documented in the HPI. ROS Other: All systems not noted in ROS Statement are negative. Past Medical History Past Medical History: No Reported History Additional Past Medical History / Comment(s): migraine headaches, Seasonal headaches uti History of Any Multi-Drug Resistant Organisms: None Reported Past Surgical History: Section Additional Past Surgical History / Comment(s): C-sections x 4 Past Anesthesia/Blood Transfusion Reactions: No Reported Reaction Past Psychological History: Anxiety, Depression Smoking Status: Former smoker Past Alcohol Use History: None Reported Past Drug Use History: Marijuana - Past Family History Mother Family Medical History: No Reported History Father History Unknown: Yes Family Medical History: No Reported History Additional Family Medical History / Comment(s): Pt has never known her father other than he lives in [place]. General Exam Limitations: no limitations General appearance: alert, in no apparent distress Head exam: Present: atraumatic, normocephalic, normal inspection Eye exam: Present: normal appearance, PERRL, EOMI. Absent: scleral icterus, conjunctival injection, periorbital swelling ENT exam: Present: normal oropharynx, mucous membranes moist, TM's normal bilaterally. Absent: normal exam Neck exam: Present: normal inspection, full ROM. Absent: tenderness, meningismus, lymphadenopathy Respiratory exam: Present: normal lung sounds bilaterally. Absent: respiratory distress, wheezes, rales, rhonchi, stridor Cardiovascular Exam: Present: regular rate, normal rhythm, normal heart sounds. Absent: systolic murmur, diastolic murmur, rubs, gallop, clicks GI/Abdominal exam: Present: soft, normal bowel sounds. Absent: distended, tenderness, guarding, rebound, rigid Back exam: Present: full ROM, tenderness, paraspinal tenderness. Absent: vertebral tenderness Neurological exam: Present: alert, oriented X3, CN II-XII intact Skin exam: Present: warm, dry, intact, normal color, rash (Open lesions sores diffusely primarily on the face, upper torso region) Course Vital Signs 11/09/19 12:07 Temperature 98.2 F Pulse Rate 78 Respiratory 18 Rate Blood Pressure 106/53 O2 Sat by Pulse 98 Oximetry Medical Decision Making - Medical Decision Making EKG is unremarkable, x-ray lumbar spine does not reveal any acute abnormality. This is related to muscle skeletal pain. Patient does have evidence of urinary tract infection. Patient will be treated with antibiotics did Discuss with her her methamphetamine use she states this is from a friend that smoke around her. I discussed the concerns of her using methamphetamines and causing cardiac issues. Patient we discharged in stable condition return parameters were discussed. - Lab Data Lab Results 11/09/19 11/09/19 Range/Units 12:30 12:30 Urine Color Yellow Urine Appearance Cloudy H (Clear) Urine pH 6.0 (5.0-8.0) Ur Specific [place] 1.020 (1.001-1.035) Urine Protein Trace H (Negative) Urine Glucose (UA) Negative (Negative) Urine Ketones Negative (Negative) Urine Blood Negative (Negative) Urine Nitrite Positive H (Negative) Urine Bilirubin Negative (Negative) Urine Urobilinogen 2.0 (<2.0) mg/dL Ur Leukocyte Esterase Moderate H (Negative) Urine RBC 2 (0-5) /hpf Urine WBC 22 H (0-5) /hpf Ur Squamous Epith Cells 6 H (0-4) /hpf Urine Bacteria Many H (None) /hpf Urine Mucus Many H (None) /hpf Urine HCG, Qual Not Detected (Not Detectd) Urine Opiates Screen Not Detected (NotDetected) Ur Oxycodone Screen Not Detected (NotDetected) Urine Methadone Screen Not Detected (NotDetected) Ur Propoxyphene Screen Not Detected (NotDetected) Ur Barbiturates Screen Not Detected (NotDetected) U Tricyclic Antidepress Not Detected (NotDetected) Ur Phencyclidine Scrn Not Detected (NotDetected) Ur Amphetamines Screen Detected H (NotDetected) U Methamphetamines Scrn Detected H (NotDetected) U Benzodiazepines Scrn Not Detected (NotDetected) Urine Cocaine Screen Not Detected (NotDetected) U Marijuana (THC) Screen Detected H (NotDetected) 11/09/19 13:49 EKG performed at 12.52/bradycardia with sinus arrhythmia rate of 57 PA 124 QRS 94 QTC is QTC 452/439 Disposition Clinical Impression: Back pain, UTI (urinary tract infection), Palpitations, Anxiety Disposition: HOME SELF-CARE Condition: Stable Instructions (If sedation given, give patient instructions): Acute Low Back Pain (ED) Additional Instructions: Please return to the Emergency Department if symptoms worsen or any other concerns. Prescriptions: Cephalexin [Keflex] 500 mg PO Q8HR #21 cap Is patient prescribed a controlled substance at d/c from ED?: No Referrals: Jomar Collazo MD [Primary Care Provider] - 1-2 days Time of Disposition: 13:49
[2019-11-09 14:13] VITALS: BP 130/53; PULSE 83; TEMP 98.7
== END 2019-11-09 14:10 | disposition home or self-care (01) ==
LOC: EC 12:05
DX: F41.9 Anxiety disorder, unspecified (principal); N39.0 Urinary tract infection, site not specified; Z87.891 Personal history of nicotine dependence
CPT/HCPCS: 72100; 80306; 81001; 81025; 87077; 87086; 87186; 93005; 99284

== ENCOUNTER → 2019-12-10 | Outpatient (CLI) | payer OTHER ==
--- NOTE | 2019-12-10 12:22 | XR ---
EXAMINATION TYPE: XR cervical spine comp DATE OF EXAM: 12/10/2019 TECHNIQUE: Frontal, lateral, oblique, swimmers, and open mouth view of the cervical spine are obtaine d. HISTORY: R52 Pain chronic neck and back pain with history of scoliosis COMPARISON: 11/04/2018 FINDINGS: There is straightening of the usual cervical lordosis. The cervical spine is visualized in its entirety from C1 thru the top of T1 level, it is satisfactory in vertebral body heights. There is a very minimal 1 mm grade 1 anterolisthesis of C3 on C4 without prevertebral soft tissue swelling or malalignment of the facets. This is chronic and seen on the prior of 11/04/2018. New minimal retroli sthesis of C5 on C6. The pre-vertebral soft tissue appears within normal limits. The C1-C2 articulat ion is within normal limits on the open mouth view. The oblique images are within normal limits. IMPRESSION: 1. Very minimal grade 1 anterolisthesis of C3 on C4 is chronic. New very minimal retrolisthesis of C5 on C6. 2. Straightening of usual cervical lordosis may be on the basis of muscular strain/spasm or patient p ositioning.
--- NOTE | 2019-12-10 12:42 | XR ---
EXAMINATION TYPE: XR lumbosacral spine min 4V DATE OF EXAM: 12/10/2019 CLINICAL HISTORY: Back pain TECHNIQUE: Frontal, lateral, and oblique images of the lumbar spine are obtained. COMPARISON: 11/09/2019 FINDINGS: There are 5 lumbar type vertebral bodies identified. The lumbar spine shows satisfactory alignment without evidence of acute fracture or dislocation. Vertebral body heights and disk space he ights are within normal limits. The oblique images appear within normal limits. The overlying soft tissue appears unremarkable. IMPRESSION: No acute fracture or dislocation is seen in the lumbar spine. No significant degenerativ e change on x-ray.
--- NOTE | 2019-12-10 12:43 | XR ---
EXAMINATION TYPE: XR thoracic spine 2V DATE OF EXAM: 12/10/2019 CLINICAL HISTORY: Chronic back pain and neck pain. TECHNIQUE: Frontal, lateral, and swimmer's view of thoracic spine are obtained. COMPARISON: 11/04/2018 FINDINGS: Thoracic spine show satisfactory alignment without evidence of acute fracture or dislocatio n. Vertebral body heights and disc space heights are preserved. Visualized ribs are unremarkable. Linear radiopaque density appears external to the patient overlying the mid mediastinum on the fronta l view but posterior to the patient in the lateral view. IMPRESSION: No acute fracture or dislocation is seen in the thoracic spine. No significant degenerat yoshi change radiographically.
== END | disposition home or self-care (01) ==
LOC: RADXRMAIN 11:40
PROVIDERS: ATTEND Internal Medicine
DX: M43.12 Spondylolisthesis, cervical region (principal); R52 Pain, unspecified
CPT/HCPCS: 72050; 72070; 72110

== ENCOUNTER 2021-06-30 11:27 | Emergency (ER) | payer OTHER ==
[2021-06-30 11:34] VITALS: BP 141/84; PULSE 106; RESP 18; TEMP 98.3
[2021-06-30] MEDS ORDERED: LORazepam 1 MG TAB PO STA (12:30)
--- NOTE | 2021-06-30 12:39 | ED ---
ENT HPI - General Chief complaint: Dental/Oral Stated complaint: Oral Abscess Time Seen by Provider: 06/30/21 12:20 Source: patient, RN notes reviewed Mode of arrival: ambulatory Limitations: no limitations - History of Present Illness Initial comments: Patient is a 31-year-old female that presents to the emergency department complaining of left lower side dental pain. She notes that she has a point with her dentist scheduled for 2 months out as they are full. She is just requesting antibiotics and Motrin for symptom control until she can get in with them. She was otherwise a well-appearing 31-year-old female. She notes that she was having a lot of anxiety and was requesting something for that. She denied any other issues or complaints. She is able to eat and drink and tolerates oral secretions well. She denied any chest pain shortness of breath headache nausea vomiting diarrhea constipation fever fatigue chills. - Related Data Home Medications Medication Instructions Recorded Confirmed diphenhydrAMINE [Benadryl] 25 mg PO DAILY PRN 02/28/18 02/12/19 Previous Rx's Medication Instructions Recorded ALPRAZolam [Xanax] 0.25 mg PO DAILY PRN 4 Days #4 tab 02/12/19 Omeprazole [PriLOSEC] 20 mg PO AC-BRKFST #14 cap 09/08/19 Cephalexin [Keflex] 500 mg PO Q8HR #21 cap 11/09/19 Ibuprofen [Motrin] 800 mg PO Q6HR #30 tab 06/30/21 Penicillin V Potassium [Pen Vee K] 500 mg PO QID #40 tablet 06/30/21 Allergies Allergy/AdvReac Type Severity Reaction Status Date / Time No Known Allergies Allergy Verified 06/30/21 11:31 Review of Systems ROS Statement: Those systems with pertinent positive or pertinent negative responses have been documented in the HPI. ROS Other: All systems not noted in ROS Statement are negative. Past Medical History Past Medical History: No Reported History Additional Past Medical History / Comment(s): migraine headaches, Seasonal headaches uti History of Any Multi-Drug Resistant Organisms: None Reported Past Surgical History: Section Additional Past Surgical History / Comment(s): C-sections x 4 Past Anesthesia/Blood Transfusion Reactions: No Reported Reaction Past Psychological History: Anxiety, Bipolar, Depression Smoking Status: Never smoker Past Alcohol Use History: None Reported Past Drug Use History: None Reported - Past Family History Mother Family Medical History: No Reported History Father History Unknown: Yes Family Medical History: No Reported History Additional Family Medical History / Comment(s): Pt has never known her father other than he lives in [place]. General Exam Limitations: no limitations General appearance: alert, in no apparent distress Head exam: Present: atraumatic, normocephalic, normal inspection Eye exam: Present: normal appearance, PERRL, EOMI. Absent: scleral icterus, conjunctival injection, periorbital swelling ENT exam: Present: normal exam, mucous membranes moist, other (Poor dental hygiene, left lower jaw minimal erythema noted no small abscess.) Neck exam: Present: normal inspection. Absent: tenderness, lymphadenopathy Respiratory exam: Present: normal lung sounds bilaterally. Absent: respiratory distress, wheezes, rales, rhonchi, stridor Cardiovascular Exam: Present: regular rate, normal rhythm, normal heart sounds. Absent: systolic murmur, diastolic murmur, rubs, gallop, clicks GI/Abdominal exam: Present: soft, normal bowel sounds. Absent: distended, tenderness, guarding, rebound, rigid Extremities exam: Present: normal inspection, full ROM, normal capillary refill. Absent: tenderness, pedal edema, joint swelling, calf tenderness Neurological exam: Present: alert, oriented X3 Psychiatric exam: Present: normal affect, normal mood Skin exam: Present: warm, dry, intact, normal color. Absent: rash Course Vital Signs 06/30/21 11:32 Temperature 98.3 F Pulse Rate 106 H Respiratory 18 Rate Blood Pressure 141/84 O2 Sat by Pulse 97 Oximetry Medical Decision Making - Medical Decision Making 31-year-old female complaining of dental pain. Requesting antibiotics and Motrin. Based on physical exam patient does have poor dental hygiene with potential for a infection. Patient is agreeable to discharge with antibiotics and Motrin with follow-up to her dentist. Case discussed with Dr. Lai, patient discharge home. Disposition Clinical Impression: Pain, dental Disposition: HOME SELF-CARE Condition: Stable Instructions (If sedation given, give patient instructions): Toothache (ED) Additional Instructions: Please return to the Emergency Department if symptoms worsen or any other concerns. Follow-up with primary care 1-2 days. Follow-up with dentist as planned. Take antibiotics as prescribed until complete. Prescriptions: Ibuprofen [Motrin] 800 mg PO Q6HR #30 tab Penicillin V Potassium [Pen Vee K] 500 mg PO QID #40 tablet Is patient prescribed a controlled substance at d/c from ED?: No Referrals: None,Stated [Primary Care Provider] - 1-2 days Time of Disposition: 12:54
== END 2021-06-30 13:00 | disposition home or self-care (01) ==
LOC: EC 11:27
DX: K08.89 Other specified disorders of teeth and supporting structures (principal); G43.909 Migraine, unspecified, not intractable, without status migrainosus; F41.9 Anxiety disorder, unspecified; F31.9 Bipolar disorder, unspecified
CPT/HCPCS: 99282

== ENCOUNTER 2021-07-18 09:55 | Emergency (ER) | payer OTHER ==
--- NOTE | 2021-07-18 11:54 | ED ---
General Adult HPI - General Chief complaint: Chest Pain Stated complaint: Chest Pain, SOB Time Seen by Provider: 07/18/21 11:15 Source: patient, RN notes reviewed, old records reviewed Mode of arrival: ambulatory Limitations: no limitations - History of Present Illness Initial comments: Patient is a 31-year-old female with history of anxiety, presenting to emergency Department with complaints of chest pain on and off over the past month. She believes it is anxiety causing this. She is to be on medications in the past but has ran out of them and feels like she needs some more. She is unable to get into her PCPs office for another month. She is going to see Dr. Dove. She denies any fevers or chills, she does have a mild cough present. She denies any nausea or vomiting. She is concerned for possible coronary. She denies being . She is no further complaints. - Related Data Previous Rx's Medication Instructions Recorded LORazepam [Ativan] 0.5 mg PO HS PRN 3 Days #3 tab 07/18/21 Allergies Allergy/AdvReac Type Severity Reaction Status Date / Time No Known Allergies Allergy Verified 07/18/21 11:39 Review of Systems ROS Statement: Those systems with pertinent positive or pertinent negative responses have been documented in the HPI. ROS Other: All systems not noted in ROS Statement are negative. Past Medical History Past Medical History: No Reported History Additional Past Medical History / Comment(s): migraine headaches, Seasonal headaches uti History of Any Multi-Drug Resistant Organisms: None Reported Past Surgical History: Section Additional Past Surgical History / Comment(s): C-sections x 4 Past Anesthesia/Blood Transfusion Reactions: No Reported Reaction Past Psychological History: Anxiety, Bipolar, Depression Smoking Status: Never smoker Past Alcohol Use History: None Reported Past Drug Use History: None Reported - Past Family History Mother Family Medical History: No Reported History Father History Unknown: Yes Family Medical History: No Reported History Additional Family Medical History / Comment(s): Pt has never known her father other than he lives in [place]. General Exam - General Exam Comments Initial Comments: GENERAL: Patient is well-developed and well-nourished. Patient is nontoxic and in no acute distress. HEAD: Atraumatic, normocephalic. EYES: Pupils equal round and reactive to light, extraocular movements intact, sclera anicteric, conjunctiva are normal. Eyelids were unremarkable. ENT: TMs normal, nares patent, oropharynx clear without exudates. Moist mucous membranes. NECK: Normal range of motion, supple without lymphadenopathy or JVD. LUNGS: Unlabored respirations. Breath sounds clear to auscultation bilaterally and equal. No wheezes rales or rhonchi. HEART: Regular rate and rhythm without murmurs, rubs or gallops. ABDOMEN: Soft, nontender, normoactive bowel sounds. No guarding, no rebound. No masses appreciated. : Deferred MUSCULOSKELETAL: Normal extremities with adequate strength and normal range of motion, no pitting or edema. No clubbing or cyanosis. NEUROLOGICAL: Patient is alert and oriented x 3. Motor and sensory are also intact. Cranial nerves II through XII grossly intact. Symmetrical smile. Normal speech, normal gait. PSYCH: Normal mood, normal affect. SKIN: Warm, Dry, normal turgor, no rashes or lesions noted. Limitations: no limitations Course Vital Signs 07/18/21 10:15 Temperature 98.9 F Pulse Rate 88 Respiratory 20 Rate Blood Pressure 114/79 O2 Sat by Pulse 99 Oximetry EKG Findings - EKG Comments: EKG Findings:: Normal sinus rhythm, incomplete RBBB, no signs of acute ST segment elevation. Similar to previous on 11/09/2019. Ventricular rate 82, MS interval 142, QTC 400. Medical Decision Making - Medical Decision Making Patient is a 31-year-old female with history of anxiety presenting with chest pain on and off for the past month. She's been having a lot of anxiety related guarding, with. She denies any short of breath, no fevers or chills. Her vitals are stable, EKG shows normal sinus rhythm, no acute process. Chest x-ray is within normal limits. Rapid Covid is negative. Discussed these findings with the patient. She does have an appointment with her PCP in the next few weeks. I will give her a few tablets of Ativan which she used to be on. She is agreeable to this plan of care and she is stable for discharge. - Lab Data Lab Results 07/18/21 07/18/21 07/18/21 Range/Units 11:41 11:41 11:41 Urine Color Light Yellow Urine Appearance Cloudy H (Clear) Urine pH 6.0 (5.0-8.0) Ur Specific [place] 1.009 (1.001-1.035) Urine Protein Negative (Negative) Urine Glucose (UA) Negative (Negative) Urine Ketones Negative (Negative) Urine Blood Negative (Negative) Urine Nitrite Negative (Negative) Urine Bilirubin Negative (Negative) Urine Urobilinogen <2.0 (<2.0) mg/dL Ur Leukocyte Esterase Negative (Negative) Urine HCG, Qual Not Detected (Not Detectd) Urine Opiates Screen Not Detected (NotDetected) Ur Oxycodone Screen Not Detected (NotDetected) Urine Methadone Screen Not Detected (NotDetected) Ur Propoxyphene Screen Not Detected (NotDetected) Ur Barbiturates Screen Not Detected (NotDetected) U Tricyclic Antidepress Not Detected (NotDetected) Ur Phencyclidine Scrn Not Detected (NotDetected) Ur Amphetamines Screen Not Detected (NotDetected) U Methamphetamines Scrn Not Detected (NotDetected) U Benzodiazepines Scrn Not Detected (NotDetected) Urine Cocaine Screen Not Detected (NotDetected) U Marijuana (THC) Screen Detected H (NotDetected) Coronavirus (PCR) Not Detected (Not Detectd) Disposition Clinical Impression: Atypical chest pain, Anxiety Disposition: HOME SELF-CARE Condition: Stable Instructions (If sedation given, give patient instructions): Anxiety (ED) Additional Instructions: Please return to the Emergency Department if symptoms worsen or any other concerns. Please follow-up with your primary care physician for further treatment of your anxiety. Prescriptions: LORazepam [Ativan] 0.5 mg PO HS PRN 3 Days #3 tab PRN Reason: Anxiety Is patient prescribed a controlled substance at d/c from ED?: Yes When asked, does pt state using other controlled substances?: No If prescribed controlled substance>3 days was MAPS reviewed?: Prescribed <3 Days Referrals: None,Stated [Primary Care Provider] - 1-2 days Rick Dove MD [STAFF PHYSICIAN] - 1-2 days Time of Disposition: 13:28
--- NOTE | 2021-07-18 12:02 | XR ---
EXAMINATION TYPE: XR chest 2V DATE OF EXAM: 07/18/2021 COMPARISON: 02/12/2019 HISTORY: Pain and anxiety TECHNIQUE: Frontal and lateral views of the chest are obtained. FINDINGS: There is no focal air space opacity, pleural effusion, or pneumothorax seen. The cardiac silhouette size is within normal limits. The osseous structures are intact. IMPRESSION: No acute cardiopulmonary process.
[2021-07-18 12:03] LABS: Appearance,Urine Cloudy (Clear); Bilirubin,Urine Negative (Negative); Blood,Urine Negative (Negative); Color,Urine Light Yellow; Glucose,Urine (UA) Negative (Negative); Ketones,Urine Negative (Negative); Leukocyte Esterase,Urine Negative (Negative); Nitrite,Urine Negative (Negative); Protein,Urine Negative (Negative); Specific Gravity,Urine 1.009 (1.001-1.035); Urobilinogen,Urine <2.0 mg/dL (<2.0)
[2021-07-18 12:20] LABS: Amphetamine Screen,Urine Not Detected (NotDetected); Barbiturate Screen,Urine Not Detected (NotDetected); Benzodiazepines Screen,Urine Not Detected (NotDetected); Cocaine Screen,Urine Not Detected (NotDetected); Methadone Screen, Urine Not Detected (NotDetected); Opiate Screen,Urine Not Detected (NotDetected); Oxycodone Screen, Urine Not Detected (NotDetected); Phencyclidine Screen,Urine Not Detected (NotDetected); Tricyclic Antidepressant,Urine Not Detected (NotDetected); Urn Cannabinoid Scrn Detected (NotDetected)
[2021-07-18] MEDS ORDERED: LORazepam 1 MG TAB PO STA (12:21)
[2021-07-18 13:50] VITALS: BP 128/74; PULSE 78; RESP 16; TEMP 98.2
== END 2021-07-18 13:49 | disposition home or self-care (01) ==
LOC: EC 09:55
DX: F41.9 Anxiety disorder, unspecified (principal); R07.89 Other chest pain; Z20.822 Contact with and (suspected) exposure to COVID-19
CPT/HCPCS: 71046; 80306; 81001; 81025; 87635; 93005; 99285

== ENCOUNTER 2022-04-10 12:33 | Emergency (ER) | payer OTHER ==
[2022-04-10] MEDS ORDERED: SODIUM CHLORIDE 0.9% 2,000 ML IV STA (13:43)
[2022-04-10] MEDS ORDERED: MORPHINE SULFATE 4 MG/ML SYRINGE IVP STA (13:43)
[2022-04-10] MEDS ORDERED: ONDANSETRON 4 MG/2 ML VIAL IVP STA (13:43)
[2022-04-10 14:30] LABS: Basophils # (A) 0.1 k/uL (0-0.2); Basophils % (A) 0 %; Eosinophils # (A) 0.1 k/uL (0-0.7); Eosinophils % (A) 1 %; HCT 37.6 % (34.0-46.0); Lymphocytes # (A) 1.4 k/uL (1.0-4.8); Lymphocytes % (A) 8 %; MCH 31.4 pg (25.0-35.0); MCHC 34.6 g/dL (31.0-37.0); MCV 90.5 fL (80.0-100.0); Mean Platelet Volume 7.2; Monocytes # (A) 1.2 k/uL (0-1.0); Monocytes % (A) 7 %; Neutrophils % (A) 83 %; Platelet Count 314 k/uL (150-450); RBC 4.16 m/uL (3.80-5.40); RDW 12.7 % (11.5-15.5); WBC 16.9 k/uL (3.8-10.6)
[2022-04-10 14:43] LABS: Appearance,Urine Cloudy (Clear); Bacteria,Urine Occasional /hpf; Bilirubin,Urine Negative (Negative); Blood,Urine Moderate (Negative); Color,Urine Yellow; Glucose,Urine (UA) Negative (Negative); Ketones,Urine Negative (Negative); Leukocyte Esterase,Urine Large (Negative); Mucus,Urine Rare /hpf; Nitrite,Urine Negative (Negative); PH, Urine 7.5 (5.0-8.0); Protein,Urine 1+ (Negative); RBC,Urine 47 /hpf (0-5); Specific Gravity,Urine 1.012 (1.001-1.035); Squamous Epithelial Cell,Urine 7 /hpf (0-4); Urobilinogen,Urine <2.0 mg/dL (<2.0); WBC,Urine 102 /hpf (0-5)
[2022-04-10 14:47] LABS: ALT 96 U/L (4-34); AST 88 U/L (14-36); African American GFR (CKD) >90 (>60 ml/min/1.73 sqM); Albumin 4.5 g/dL (3.5-5.0); Alkaline Phosphatase 155 U/L (38-126); Anion Gap 11 mmol/L; Blood Urea Nitrogen 9 mg/dL (7-17); Calcium 9.6 mg/dL (8.4-10.2); Carbon Dioxide 20 mmol/L (22-30); Chloride 102 mmol/L (98-107); Glucose 87 mg/dL (74-99); Lipase 59 U/L (23-300); Non-African American GFR(CKD) >90 (>60 ml/min/1.73 sqM); Potassium 4.2 mmol/L (3.5-5.1); Sodium 133 mmol/L (137-145); Total Bilirubin 0.8 mg/dL (0.2-1.3)
[2022-04-10] MEDS ORDERED: IBUPROFEN 800 MG TAB PO STA (15:37)
[2022-04-10 15:41] VITALS: TEMP 100.6
--- NOTE | 2022-04-10 15:57 | ED ---
Abdominal Pain HPI - General Chief Complaint: Abdominal Pain Stated Complaint: Abd pain,nausea Time Seen by Provider: 04/10/22 13:31 Source: patient Mode of arrival: ambulatory Limitations: no limitations - History of Present Illness Initial Comments: Patient is a 32-year-old female who presents to the emergency department with a chief complaint of left side pain. Patient states the pain started 3 days ago with radiation to the left back. Reports associated chills, nausea, burning with urination, and increased urinary urgency/frequency. States she took ibuprofen with little relief, last dose this morning. Denies vomiting, constipation, diarrhea, blood in the urine, and other concerns. Admits to history of urinary tract infection. Denies history of kidney stone and kidney infection. - Related Data Previous Rx's Medication Instructions Recorded LORazepam [Ativan] 0.5 mg PO HS PRN 3 Days #3 tab 07/18/21 Ibuprofen [Motrin] 800 mg PO Q6HR #28 tab 04/10/22 Sulfamethox-Tmp 800-160Mg [Bactrim 1 each PO Q12HR 14 Days #28 tab 04/10/22 Ds] Allergies Allergy/AdvReac Type Severity Reaction Status Date / Time No Known Allergies Allergy Verified 04/10/22 13:07 Review of Systems ROS Statement: Those systems with pertinent positive or pertinent negative responses have been documented in the HPI. ROS Other: All systems not noted in ROS Statement are negative. Past Medical History Past Medical History: No Reported History Additional Past Medical History / Comment(s): migraine headaches, Seasonal headaches uti History of Any Multi-Drug Resistant Organisms: None Reported Past Surgical History: Section Additional Past Surgical History / Comment(s): C-sections x 4 Past Anesthesia/Blood Transfusion Reactions: No Reported Reaction Past Psychological History: Anxiety, Bipolar, Depression Smoking Status: Never smoker Past Alcohol Use History: None Reported Past Drug Use History: None Reported - Past Family History Mother Family Medical History: No Reported History Father History Unknown: Yes Family Medical History: No Reported History Additional Family Medical History / Comment(s): Pt has never known her father other than he lives in [place]. General Exam Limitations: no limitations General appearance: alert, in no apparent distress Eye exam: Present: normal appearance, PERRL, EOMI. Absent: scleral icterus, conjunctival injection, periorbital swelling Respiratory exam: Present: normal lung sounds bilaterally. Absent: respiratory distress, wheezes, rales, rhonchi, stridor Cardiovascular Exam: Present: normal rhythm, tachycardia, normal heart sounds. Absent: systolic murmur, diastolic murmur, rubs, gallop, clicks GI/Abdominal exam: Present: soft, normal bowel sounds. Absent: distended, ten derness, guarding, rebound, rigid Back exam: Present: normal inspection, full ROM, CVA tenderness (L), paraspinal tenderness (left ). Absent: CVA tenderness (R) Neurological exam: Present: alert, oriented X3, CN II-XII intact Psychiatric exam: Present: normal affect, normal mood Skin exam: Present: warm, dry, intact, normal color. Absent: rash Course Vital Signs 04/10/22 04/10/22 04/10/22 13:05 15:25 16:29 Temperature 98.3 F 100.6 F H Pulse Rate 131 H 120 H 107 H Respiratory 18 18 16 Rate Blood Pressure 128/72 91/66 120/76 O2 Sat by Pulse 99 99 99 Oximetry Medical Decision Making - Medical Decision Making This is a 32-year-old female who presents for evaluation of left side pain. Thorough history and examination were performed. Patient is in no apparent distress. She initially presented tachycardic initially at 131. Blood pressure and temperature were within normal limits. She has significant left CVA tenderness with left lumbar paravertebral tenderness. Denies back injury. With patient's urinary symptoms there is concern for pyelonephritis. Patient given fluid bolus as well as pain and nausea medication. Laboratory studies obtained and significant for leukocytosis at 16.9, elevated AST at 88, elevated ALT at 96, and elevated alk phos at 155. Lactic acid is within normal limits. Urinalysis is indicative of a decent infection. During emergency stay patient she became febrile at 100.6F and hypotensive from 128/72 to 91/66. Blood cultures pending Patient given Rocephin. Upon discussion about admission patient refuses to stay due to needing to take care of her children at home. I informed patient that she meets sepsis criteria and that I highly discouraged patient goes home due to the risk of fatal blood infection. Patient states she understands the risks and will return if her symptoms get worse. I did have her sign an AGAINST MEDICAL ADVICE form. She will be sent home with Bactrim for pyelonephritis. We discussed strict return parameters in detail. Patient verbalizes understanding. Dr. Lai is my attending. - Lab Data Result diagrams: 04/10/22 14:05 04/10/22 14:05 Lab Results 04/10/22 04/10/22 04/10/22 Range/Units 14:05 14:05 14:05 WBC 16.9 H (3.8-10.6) k/uL RBC 4.16 (3.80-5.40) m/uL Hgb 13.0 (11.4-16.0) gm/dL Hct 37.6 (34.0-46.0) % MCV 90.5 (80.0-100.0) fL MCH 31.4 (25.0-35.0) pg MCHC 34.6 (31.0-37.0) g/dL RDW 12.7 (11.5-15.5) % Plt Count 314 (150-450) k/uL MPV 7.2 Neutrophils % 83 % Lymphocytes % 8 % Monocytes % 7 % Eosinophils % 1 % Basophils % 0 % Neutrophils # 14.0 H (1.3-7.7) k/uL Lymphocytes # 1.4 (1.0-4.8) k/uL Monocytes # 1.2 H (0-1.0) k/uL Eosinophils # 0.1 (0-0.7) k/uL Basophils # 0.1 (0-0.2) k/uL Sodium 133 L (137-145) mmol/L Potassium 4.2 (3.5-5.1) mmol/L Chloride 102 (98-107) mmol/L Carbon Dioxide 20 L (22-30) mmol/L Anion Gap 11 mmol/L BUN 9 (7-17) mg/dL Creatinine 0.75 (0.52-1.04) mg/dL Est GFR (CKD-EPI)AfAm >90 (>60 ml/min/1.73 sqM) Est GFR (CKD-EPI)NonAf >90 (>60 ml/min/1.73 sqM) Glucose 87 (74-99) mg/dL Plasma Lactic Acid Jose Rafael (0.7-2.0) mmol/L Calcium 9.6 (8.4-10.2) mg/dL Total Bilirubin 0.8 (0.2-1.3) mg/dL AST 88 H (14-36) U/L ALT 96 H (4-34) U/L Alkaline Phosphatase 155 H (38-126) U/L Total Protein 8.0 (6.3-8.2) g/dL Albumin 4.5 (3.5-5.0) g/dL Lipase 59 (23-300) U/L Urine Color Yellow Urine Appearance Cloudy H (Clear) Urine pH 7.5 (5.0-8.0) Ur Specific [place] 1.012 (1.001-1.035) Urine Protein 1+ H (Negative) Urine Glucose (UA) Negative (Negative) Urine Ketones Negative (Negative) Urine Blood Moderate H (Negative) Urine Nitrite Negative (Negative) Urine Bilirubin Negative (Negative) Urine Urobilinogen <2.0 (<2.0) mg/dL Ur Leukocyte Esterase Large H (Negative) Urine RBC 47 H (0-5) /hpf Urine WBC 102 H (0-5) /hpf Ur Squamous Epith Cells 7 H (0-4) /hpf Urine Bacteria Occasional H (None) /hpf Urine Mucus Rare H (None) /hpf 04/10/22 Range/Units 14:05 WBC (3.8-10.6) k/uL RBC (3.80-5.40) m/uL Hgb (11.4-16.0) gm/dL Hct (34.0-46.0) % MCV (80.0-100.0) fL MCH (25.0-35.0) pg MCHC (31.0-37.0) g/dL RDW (11.5-15.5) % Plt Count (150-450) k/uL MPV Neutrophils % % Lymphocytes % % Monocytes % % Eosinophils % % Basophils % % Neutrophils # (1.3-7.7) k/uL Lymphocytes # (1.0-4.8) k/uL Monocytes # (0-1.0) k/uL Eosinophils # (0-0.7) k/uL Basophils # (0-0.2) k/uL Sodium (137-145) mmol/L Potassium (3.5-5.1) mmol/L Chloride (98-107) mmol/L Carbon Dioxide (22-30) mmol/L Anion Gap mmol/L BUN (7-17) mg/dL Creatinine (0.52-1.04) mg/dL Est GFR (CKD-EPI)AfAm (>60 ml/min/1.73 sqM) Est GFR (CKD-EPI)NonAf (>60 ml/min/1.73 sqM) Glucose (74-99) mg/dL Plasma Lactic Acid Jose Rafael 1.0 (0.7-2.0) mmol/L Calcium (8.4-10.2) mg/dL Total Bilirubin (0.2-1.3) mg/dL AST (14-36) U/L ALT (4-34) U/L Alkaline Phosphatase (38-126) U/L Total Protein (6.3-8.2) g/dL Albumin (3.5-5.0) g/dL Lipase (23-300) U/L Urine Color Urine Appearance (Clear) Urine pH (5.0-8.0) Ur Specific [place] (1.001-1.035) Urine Protein (Negative) Urine Glucose (UA) (Negative) Urine Ketones (Negative) Urine Blood (Negative) Urine Nitrite (Negative) Urine Bilirubin (Negative) Urine Urobilinogen (<2.0) mg/dL Ur Leukocyte Esterase (Negative) Urine RBC (0-5) /hpf Urine WBC (0-5) /hpf Ur Squamous Epith Cells (0-4) /hpf Urine Bacteria (None) /hpf Urine Mucus (None) /hpf Disposition Clinical Impression: Pyelonephritis Disposition: Left Against Medical Advice Condition: Fair Additional Instructions: You are leaving AGAINST MEDICAL ADVICE. It is very important to take your antibiotic and to return if you experience new, concerning, or worsening symptoms. Please follow up with her primary care provider in one to 2 days. Prescriptions: Sulfamethox-Tmp 800-160Mg [Bactrim Ds] 1 each PO Q12HR 14 Days #28 tab Ibuprofen [Motrin] 800 mg PO Q6HR #28 tab Is patient prescribed a controlled substance at d/c from ED?: No Referrals: None,Stated [Primary Care Provider] - 1-2 days Time of Disposition: 15:57
[2022-04-10 16:31] VITALS: BP 120/76; PULSE 107; RESP 16
== END 2022-04-10 16:43 | disposition left against medical advice (07) ==
LOC: EC 12:33
DX: N12 Tubulo-interstitial nephritis, not specified as acute or chronic (principal); D72.829 Elevated white blood cell count, unspecified; R79.89 Other specified abnormal findings of blood chemistry; Z53.29 Procedure and treatment not carried out because of patient's decision for other reasons
CPT/HCPCS: 36415; 80053; 83605; 83690; 85025; 81001; 87040; 87086; 87077; 87186; 99284; 96365; 96375; 96361; J2270; J2405; J0696

== ENCOUNTER 2022-08-21 11:50 | Emergency (ER) | payer OTHER ==
[2022-08-21 11:59] VITALS: RESP 20; TEMP 98.8
[2022-08-21 12:23] LABS: Appearance,Urine Clear (Clear); Bacteria,Urine Rare /hpf; Bilirubin,Urine Negative (Negative); Blood,Urine Moderate (Negative); Color,Urine Colorless; Glucose,Urine (UA) Negative (Negative); Ketones,Urine Negative (Negative); Leukocyte Esterase,Urine Negative (Negative); Nitrite,Urine Negative (Negative); Protein,Urine Negative (Negative); RBC,Urine <1 /hpf (0-5); Specific Gravity,Urine 1.006 (1.001-1.035); Squamous Epithelial Cell,Urine <1 /hpf (0-4); Urobilinogen,Urine <2.0 mg/dL (<2.0); WBC,Urine <1 /hpf (0-5)
[2022-08-21] MEDS ORDERED: MORPHINE SULFATE 4 MG/ML SYRINGE IV STA (15:28)
[2022-08-21] MEDS ORDERED: SODIUM CHLORIDE 0.9% 1,000 ML IV STA (15:28)
[2022-08-21] MEDS ORDERED: ONDANSETRON 4 MG/2 ML VIAL IVP STA (15:28)
--- NOTE | 2022-08-21 15:47 | XR ---
EXAMINATION TYPE: XR KUB DATE OF EXAM: 08/21/2022 COMPARISON: NONE HISTORY: Pain TECHNIQUE: Single supine KUB image of the abdomen is obtained FINDINGS: Small bowel demonstrates no evidence for dilatation or air fluid levels. Gas and fecal material is seen in non-distended colon. No convincing evidence for pneumoperitoneum. No unusual calcifications. The lung bases are clear. The osseous structures are intact. IMPRESSION: 1. Overall nonobstructive bowel gas pattern.
[2022-08-21 16:12] LABS: Basophils % (A) 1 %; Eosinophils # (A) 0.2 k/uL (0-0.7); Eosinophils % (A) 3 %; HCT 39.2 % (34.0-46.0); HGB 13.2 gm/dL (11.4-16.0); Lymphocytes # (A) 2.5 k/uL (1.0-4.8); Lymphocytes % (A) 29 %; MCH 30.2 pg (25.0-35.0); MCHC 33.6 g/dL (31.0-37.0); MCV 89.8 fL (80.0-100.0); Mean Platelet Volume 7.3; Monocytes # (A) 0.4 k/uL (0-1.0); Monocytes % (A) 5 %; Neutrophils # (A) 5.2 k/uL (1.3-7.7); Neutrophils % (A) 61 %; Platelet Count 387 k/uL (150-450); RBC 4.36 m/uL (3.80-5.40); RDW 12.7 % (11.5-15.5); WBC 8.5 k/uL (3.8-10.6)
[2022-08-21 16:22] LABS: ALT 23 U/L (4-34); AST 24 U/L (14-36); African American GFR (CKD) >90 (>60 ml/min/1.73 sqM); Albumin 4.9 g/dL (3.5-5.0); Alkaline Phosphatase 112 U/L (38-126); Amylase 63 U/L (30-110); Anion Gap 12 mmol/L; Blood Urea Nitrogen 12 mg/dL (7-17); Calcium 9.7 mg/dL (8.4-10.2); Carbon Dioxide 23 mmol/L (22-30); Chloride 106 mmol/L (98-107); Glucose 90 mg/dL (74-99); Lipase 83 U/L (23-300); Non-African American GFR(CKD) >90 (>60 ml/min/1.73 sqM); Potassium 4.2 mmol/L (3.5-5.1); Sodium 141 mmol/L (137-145); Total Bilirubin 0.5 mg/dL (0.2-1.3); Total Protein 8.2 g/dL (6.3-8.2)
--- NOTE | 2022-08-21 17:23 | ED ---
Abdominal Pain HPI - General Chief Complaint: Abdominal Pain Stated Complaint: Kidney infection Time Seen by Provider: 08/21/22 15:10 Source: patient Mode of arrival: ambulatory Limitations: no limitations - History of Present Illness Initial Comments: Patient is a 32-year-old female presenting with chief complaint of right-sided flank pain. Patient states the pain started yesterday and is a sharp intense pain. Patient was previously evaluated here for similar flank pain, she was diagnosed with kidney infection and they recommended that she stay for inpatient treatment, however patient left AGAINST MEDICAL ADVICE. She denies any dysuria or hematuria. No fever or chills. Admits to nausea denies vomiting. No chest pain or difficulty breathing. No palpitations or weakness. - Related Data Previous Rx's Medication Instructions Recorded LORazepam [Ativan] 0.5 mg PO HS PRN 3 Days #3 tab 07/18/21 Ibuprofen [Motrin] 800 mg PO Q6HR #28 tab 04/10/22 Sulfamethox-Tmp 800-160Mg [Bactrim 1 each PO Q12HR 14 Days #28 tab 04/10/22 Ds] Allergies Allergy/AdvReac Type Severity Reaction Status Date / Time No Known Allergies Allergy Verified 08/21/22 11:59 Review of Systems ROS Statement: Those systems with pertinent positive or pertinent negative responses have been documented in the HPI. ROS Other: All systems not noted in ROS Statement are negative. Past Medical History Past Medical History: No Reported History Additional Past Medical History / Comment(s): migraine headaches, Seasonal headaches uti History of Any Multi-Drug Resistant Organisms: None Reported Past Surgical History: Section Additional Past Surgical History / Comment(s): C-sections x 4 Past Anesthesia/Blood Transfusion Reactions: No Reported Reaction Past Psychological History: Anxiety, Bipolar, Depression Smoking Status: Never smoker Past Alcohol Use History: None Reported Past Drug Use History: None Reported - Past Family History Mother Family Medical History: No Reported History Father History Unknown: Yes Family Medical History: No Reported History Additional Family Medical History / Comment(s): Pt has never known her father other than he lives in [place]. General Exam Limitations: no limitations General appearance: alert, in no apparent distress Head exam: Present: atraumatic, normocephalic, normal inspection Eye exam: Present: normal appearance Neck exam: Present: normal inspection Respiratory exam: Present: normal lung sounds bilaterally. Absent: respiratory distress, wheezes, rales, rhonchi, stridor Cardiovascular Exam: Present: regular rate, normal rhythm, normal heart sounds. Absent: systolic murmur, diastolic murmur, rubs, gallop, clicks GI/Abdominal exam: Present: soft. Absent: distended, tenderness, guarding, rebound, rigid Back exam: Absent: CVA tenderness (R), CVA tenderness (L) Neurological exam: Present: alert, oriented X3, CN II-XII intact Psychiatric exam: Present: normal affect, normal mood Skin exam: Present: warm, dry, intact, normal color. Absent: rash Course Vital Signs 08/21/22 08/21/22 11:57 17:58 Temperature 98.8 F Pulse Rate 100 91 Respiratory 20 20 Rate Blood Pressure 125/82 122/81 O2 Sat by Pulse 98 98 Oximetry Medical Decision Making - Medical Decision Making Patient is a 32-year-old female presenting with chief complaint of right-sided flank pain that is ongoing for a few days. On examination there is no abdominal tenderness or CVA tenderness. CBC and CMP are unremarkable. Lactic acid is 1.0. Urine shows less than 1 RBC with rare bacteria, urine sent for culture. KUB shows nonacute abdomen, ultrasound of bladder, ureters, kidneys shows no acute process. Patient is resting comfortably on reassessment, reports improvement after pain medication. Patient may have had a passed kidney stone, no sign of pyelonephritis or any hydronephrosis. Patient's pain is well- controlled, she appears stable for discharge with outpatient follow-up at this time. Follow-up with PCP. Report back to ER with any new or worsening symptoms. Discussed return parameters and answered all questions. Patient conveyed verbal understanding and agreed to the plan. I discussed this case in detail with my attending Dr. Saenz - Lab Data Result diagrams: 08/21/22 16:00 08/21/22 16:00 Lab Results 08/21/22 08/21/22 08/21/22 Range/Units 12:03 16:00 16:00 WBC 8.5 (3.8-10.6) k/uL RBC 4.36 (3.80-5.40) m/uL Hgb 13.2 (11.4-16.0) gm/dL Hct 39.2 (34.0-46.0) % MCV 89.8 (80.0-100.0) fL MCH 30.2 (25.0-35.0) pg MCHC 33.6 (31.0-37.0) g/dL RDW 12.7 (11.5-15.5) % Plt Count 387 (150-450) k/uL MPV 7.3 Neutrophils % 61 % Lymphocytes % 29 % Monocytes % 5 % Eosinophils % 3 % Basophils % 1 % Neutrophils # 5.2 (1.3-7.7) k/uL Lymphocytes # 2.5 (1.0-4.8) k/uL Monocytes # 0.4 (0-1.0) k/uL Eosinophils # 0.2 (0-0.7) k/uL Basophils # 0.0 (0-0.2) k/uL Sodium 141 (137-145) mmol/L Potassium 4.2 (3.5-5.1) mmol/L Chloride 106 (98-107) mmol/L Carbon Dioxide 23 (22-30) mmol/L Anion Gap 12 mmol/L BUN 12 (7-17) mg/dL Creatinine 0.75 (0.52-1.04) mg/dL Est GFR (CKD-EPI)AfAm >90 (>60 ml/min/1.73 sqM) Est GFR (CKD-EPI)NonAf >90 (>60 ml/min/1.73 sqM) Glucose 90 (74-99) mg/dL Plasma Lactic Acid Jose Rafael (0.7-2.0) mmol/L Calcium 9.7 (8.4-10.2) mg/dL Total Bilirubin 0.5 (0.2-1.3) mg/dL AST 24 (14-36) U/L ALT 23 (4-34) U/L Alkaline Phosphatase 112 (38-126) U/L Total Protein 8.2 (6.3-8.2) g/dL Albumin 4.9 (3.5-5.0) g/dL Amylase 63 (30-110) U/L Lipase 83 (23-300) U/L Urine Color Colorless Urine Appearance Clear (Clear) Urine pH 6.0 (5.0-8.0) Ur Specific [place] 1.006 (1.001-1.035) Urine Protein Negative (Negative) Urine Glucose (UA) Negative (Negative) Urine Ketones Negative (Negative) Urine Blood Moderate H (Negative) Urine Nitrite Negative (Negative) Urine Bilirubin Negative (Negative) Urine Urobilinogen <2.0 (<2.0) mg/dL Ur Leukocyte Esterase Negative (Negative) Urine RBC <1 (0-5) /hpf Urine WBC <1 (0-5) /hpf Ur Squamous Epith Cells <1 (0-4) /hpf Urine Bacteria Rare H (None) /hpf 08/21/22 Range/Units 16:00 WBC (3.8-10.6) k/uL RBC (3.80-5.40) m/uL Hgb (11.4-16.0) gm/dL Hct (34.0-46.0) % MCV (80.0-100.0) fL MCH (25.0-35.0) pg MCHC (31.0-37.0) g/dL RDW (11.5-15.5) % Plt Count (150-450) k/uL MPV Neutrophils % % Lymphocytes % % Monocytes % % Eosinophils % % Basophils % % Neutrophils # (1.3-7.7) k/uL Lymphocytes # (1.0-4.8) k/uL Monocytes # (0-1.0) k/uL Eosinophils # (0-0.7) k/uL Basophils # (0-0.2) k/uL Sodium (137-145) mmol/L Potassium (3.5-5.1) mmol/L Chloride (98-107) mmol/L Carbon Dioxide (22-30) mmol/L Anion Gap mmol/L BUN (7-17) mg/dL Creatinine (0.52-1.04) mg/dL Est GFR (CKD-EPI)AfAm (>60 ml/min/1.73 sqM) Est GFR (CKD-EPI)NonAf (>60 ml/min/1.73 sqM) Glucose (74-99) mg/dL Plasma Lactic Acid Jose Rafael 1.0 (0.7-2.0) mmol/L Calcium (8.4-10.2) mg/dL Total Bilirubin (0.2-1.3) mg/dL AST (14-36) U/L ALT (4-34) U/L Alkaline Phosphatase (38-126) U/L Total Protein (6.3-8.2) g/dL Albumin (3.5-5.0) g/dL Amylase (30-110) U/L Lipase (23-300) U/L Urine Color Urine Appearance (Clear) Urine pH (5.0-8.0) Ur Specific [place] (1.001-1.035) Urine Protein (Negative) Urine Glucose (UA) (Negative) Urine Ketones (Negative) Urine Blood (Negative) Urine Nitrite (Negative) Urine Bilirubin (Negative) Urine Urobilinogen (<2.0) mg/dL Ur Leukocyte Esterase (Negative) Urine RBC (0-5) /hpf Urine WBC (0-5) /hpf Ur Squamous Epith Cells (0-4) /hpf Urine Bacteria (None) /hpf Disposition Clinical Impression: Flank pain Disposition: HOME SELF-CARE Condition: Good Instructions (If sedation given, give patient instructions): Kidney Stones (ED) Additional Instructions: Follow-up with PCP. Report back to ER with any new or worsening symptoms. Take Motrin and Tylenol as needed for pain control. Is patient prescribed a controlled substance at d/c from ED?: No Referrals: Rick Dove MD [Primary Care Provider] - 1-2 days Time of Disposition: 17:43
--- NOTE | 2022-08-21 17:29 | US ---
EXAMINATION TYPE: US kidneys/renal and bladder DATE OF EXAM: 08/21/2022 COMPARISON: XR, US Abd limited CLINICAL HISTORY: flank pain. Flank pain. EXAM MEASUREMENTS: Right Kidney: 12.0 x 5.8 x 3.9 cm Left Kidney: 11.5 x 4.3 x 4.2 cm Right Kidney: No hydronephrosis or masses seen Left Kidney: No hydronephrosis or masses seen Bladder: Limited evaluation, not fully distended. Bilateral Jets seen: No IMPRESSION: No evidence of renal mass or obstruction. Ureteral jets not demonstrated. No evidence of a bladder ma ss.
[2022-08-21 18:00] VITALS: BP 122/81; PULSE 91
== END 2022-08-21 18:00 | disposition home or self-care (01) ==
LOC: EC 11:50
DX: R10.9 Unspecified abdominal pain (principal); F41.9 Anxiety disorder, unspecified; F31.9 Bipolar disorder, unspecified
CPT/HCPCS: 36415; 80053; 82150; 83605; 83690; 85025; 81001; 81025; 74018; 76770; 99284; 96374; 96375; 96361 ×2; J2270; J2405